=== PATIENT | female | born 1965 | race Caucasian/White ===

== ENCOUNTER 2017-09-11 17:18 | Emergency (ER) | payer SELFPAY ==
[~2017-09-11 17:18] MED LIST: ACET500; ALBU90OI61 INH; ASPI81CH; ASPI81EC PO; CEPH500 PO; CITA20; CLIN300 PO; FERR325 PO; FLUT110OIA INH; HYDACE5 PO; INSULANPEN SQ; LISHYD1012; LISHYD2012; LISHYD2025 PO; LISI20 PO; METF500; METF500 PO; NITR.4SL; Norco 5-325 Ta1 EACH PO; PENVK500 PO; PRAV20; PROM25 PO; ROSU10TA PO; RXSULTRIDS PO; SIMV10 PO; SULTRIDS PO; Simvastatin20 MG PO; TELM20 PO; TELM80 PO; TRAM50 PO
== END 2017-09-11 18:06 | disposition left against medical advice (07) ==
LOC: ER 17:18
DX: Z53.21 Procedure and treatment not carried out due to patient leaving prior to being seen by health care provider (principal)

== ENCOUNTER 2019-01-10 09:36 | Emergency (ER) | payer OTHER ==
[~2019-01-10] VITALS: Ht 154.9 cm; Wt 61.2 kg
[~2019-01-10 09:36] MED LIST changes: +Flomax0.4 MG PO; +IBUP600 PO; +METF500C PO
[2019-01-10] MEDS ORDERED: HYDHCL25 (09:55)
[2019-01-10] MEDS ORDERED: ONDA4 PO (09:55)
[2019-01-10 10:24] LABS: Source, Urine Clean Catch
[2019-01-10 10:30] LABS: BASOPHILS ABSOLUTE AUTO 0.05 K/mm3 (0.00-0.23); BASOPHILS PERCENT AUTO 1 % (0-2); EOSINOPHILS ABSOLUTE AUTO 0.08 K/mm3 (0.00-0.68); EOSINOPHILS PERCENT AUTO 1 % (0-6); Hematocrit 44.7 % (33.0-51.0); Hemoglobin 15.6 g/dL (11.5-16.0); IMMATURE GRAN ABSOLUTE AUTO 0.01 K/mm3 (0.00-0.10); IMMATURE GRAN PERCENT AUTO 0 % (0-1); LYMPHOCYTES ABSOLUTE AUTO 3.42 K/mm3 (0.84-5.20); LYMPHOCYTES PERCENT AUTO 33 % (21-46); MONOCYTES ABSOLUTE AUTO 0.62 K/mm3 (0.16-1.47); MONOCYTES PERCENT AUTO 6 % (4-13); Mean Corpuscular HGB 28.7 pg (26.0-34.0); Mean Corpuscular HGB Conc 34.9 g/dL (31.5-36.5); Mean Corpuscular Volume 82 fL (80-100); NEUTROPHILS PERCENT AUTO 59 % (41-73); Platelet Count 331 K/mm3 (150-400); RDW Coefficient Variation 12.2 % (11.7-14.2); RDW Standard Deviation 36.5 fL (35.1-46.3); Red Blood Cell Count 5.44 M/mm3 (3.80-5.20); White Blood Cell Count 10.28 K/mm3 (4.00-11.30)
[2019-01-10 10:31] LABS: Bilirubin, Urine Neg (Neg); Blood, Urine Neg (Neg); Glucose Qualitative, Urine 4+ (Neg); Ketones, Urine Neg (Neg); Leukocyte Esterase, Urine 1+ (Neg); Nitrite, Urine Neg (Neg); Protein, Urine 1+ (Neg); Specific Gravity, Urine 1.005 (1.003-1.022); Urobilinogen, Urine NORM (Normal)
[2019-01-10 10:39] LABS: Appearance, Urine Clear (Clear); Color, Urine Yellow (P-Yellow)
[2019-01-10 10:42] LABS: Bacteria Rare /hpf; Red Blood Cells, Urine 0-2 /hpf (0-2); Squamous Epithelial Cells Few /hpf (Few)
[2019-01-10 10:48] LABS: Alanine Aminotransfer (ALT/SGP 19 U/L (12-78); Albumin, Blood 3.8 g/dL (3.4-5.0); Albumin/Globulin Ratio 0.9 (0.8-1.8); Alk Phos 120 U/L (50-136); Anion Gap 9 mmol/L (6-16); Aspartate Aminotrans (AST/SGOT 13 U/L (12-37); Bilirubin, Total 0.9 mg/dL (0.1-1.0); Blood Urea Nitrogen 20 mg/dL (8-24); Bun/Creatinine Ratio 33.4 (12.0-20.0); CO2, Blood 31 mmol/L (21-32); Calcium, Blood 9.6 mg/dL (8.5-10.1); Chloride, Blood 92 mmol/L (98-108); Globulin, Blood 4.1 g/dL (2.2-4.0); Glomerular Filtration Rate >60 (60-); Glucose, Blood 440 mg/dL (70-99); Sodium, Blood 132 mmol/L (136-145); Total Protein, Blood 7.9 g/dL (6.4-8.2)
== END 2019-01-10 14:31 | disposition home or self-care (01) ==
LOC: ER 09:36
PROVIDERS: Physician Assistant
DX: E11.65 Type 2 diabetes mellitus with hyperglycemia (principal); I10 Essential (primary) hypertension; Z79.899 Other long term (current) drug therapy; Z79.82 Long term (current) use of aspirin; Z79.4 Long term (current) use of insulin
CPT/HCPCS: 36415; 71046; 80053; 81001; 82010; 82800; 82947; 84484; 85025; 87086; 93005; 93010; 96360; 99285-25; J1815; J7120

== ENCOUNTER 2019-05-07 15:59 | Inpatient (IN) | payer OTHER ==
[~2019-05-07] VITALS: Ht 154.9 cm; Wt 55.2 kg
[~2019-05-07 15:59] MED LIST changes: +Aspirin EC81 MG PO; +HYDHCL25; +INSULANPEN SC; -INSULANPEN SQ; +ONDA4 PO
[2019-05-07 16:55] LABS: BASOPHILS ABSOLUTE AUTO 0.03 K/mm3 (0.00-0.23); BASOPHILS PERCENT AUTO 0 % (0-2); EOSINOPHILS ABSOLUTE AUTO 0.13 K/mm3 (0.00-0.68); EOSINOPHILS PERCENT AUTO 1 % (0-6); Hematocrit 46.3 % (33.0-51.0); Hemoglobin 15.5 g/dL (11.5-16.0); IMMATURE GRAN ABSOLUTE AUTO 0.01 K/mm3 (0.00-0.10); IMMATURE GRAN PERCENT AUTO 0 % (0-1); LYMPHOCYTES ABSOLUTE AUTO 2.84 K/mm3 (0.84-5.20); LYMPHOCYTES PERCENT AUTO 28 % (21-46); MONOCYTES ABSOLUTE AUTO 0.53 K/mm3 (0.16-1.47); MONOCYTES PERCENT AUTO 5 % (4-13); Mean Corpuscular HGB 28.9 pg (26.0-34.0); Mean Corpuscular HGB Conc 33.5 g/dL (31.5-36.5); Mean Corpuscular Volume 86 fL (80-100); Mean Platelet Volume 9.6 fL (9.1-12.4); NEUTROPHILS ABSOLUTE AUTO 6.49 K/mm3 (1.96-9.15); NEUTROPHILS PERCENT AUTO 65 % (41-73); Platelet Count 299 K/mm3 (150-400); RDW Coefficient Variation 12.2 % (11.7-14.2); RDW Standard Deviation 38.7 fL (35.1-46.3); Red Blood Cell Count 5.37 M/mm3 (3.80-5.20); White Blood Cell Count 10.03 K/mm3 (4.00-11.30)
[2019-05-07 17:18] LABS: Alanine Aminotransfer (ALT/SGP 21 U/L (12-78); Albumin, Blood 3.5 g/dL (3.4-5.0); Albumin/Globulin Ratio 0.9 (0.8-1.8); Alk Phos 75 U/L (50-136); Anion Gap 6 mmol/L (6-16); Aspartate Aminotrans (AST/SGOT 17 U/L (12-37); Bilirubin, Total 0.6 mg/dL (0.1-1.0); Blood Urea Nitrogen 20 mg/dL (8-24); Bun/Creatinine Ratio 40.6 (12.0-20.0); CO2, Blood 26 mmol/L (21-32); Calcium, Blood 9.6 mg/dL (8.5-10.1); Chloride, Blood 102 mmol/L (98-108); Creatinine, Blood 0.49 mg/dL (0.40-1.00); Glomerular Filtration Rate >60 (60-); Glucose, Blood 335 mg/dL (70-99); Potassium, Blood 3.7 mmol/L (3.5-5.5); Sodium, Blood 134 mmol/L (136-145); Total Protein, Blood 7.5 g/dL (6.4-8.2)
[2019-05-07 19:36] LABS: Source, Urine Clean Catch
[2019-05-07 19:50] LABS: Bilirubin, Urine Neg (Neg); Blood, Urine Neg (Neg); Glucose Qualitative, Urine 4+ (Neg); Ketones, Urine 2+ (Neg); Leukocyte Esterase, Urine Neg (Neg); Nitrite, Urine Neg (Neg); Protein, Urine 1+ (Neg); Urobilinogen, Urine NORM (Normal)
[2019-05-07 19:51] LABS: Appearance, Urine Clear (Clear); Color, Urine Yellow (P-Yellow)
[2019-05-07] MEDS ORDERED: Humalog100 UNIT/1 SC (21:10)
--- NOTE | 2019-05-08 01:40 | NUR ---
PT ARRIVES TO ICU 2 VIA GURNEY FROM ER MEDICAL STATUS PATIENT. DENIES N/V, DENIES CP/PRESSURE, DENIES SOB/DYSPNEA. SPEAKING IN FULL SENTANCES, PT STATES THAT SHE IS NO LONGER SLURRING HER WORDS "LIKE I HAD A MOUTHFUL OF MARSHMALLOWS" SMILE IS NOTED WITH SLIGHT LEFT DROOP, LEFT ARM DRIFTS DOWNWARD WITH EYES CLOSED, HOT REPAIRMAN IS MARKEDLY WEAKER ON LEFT THAN RIGHT AND LEFT FOOT STRENGTH IS WEAK COMPARED TO RIGHT.
[2019-05-08 03:41] LABS: Hematocrit 40.4 % (33.0-51.0); Hemoglobin 13.9 g/dL (11.5-16.0); Mean Corpuscular HGB 29.1 pg (26.0-34.0); Mean Corpuscular HGB Conc 34.4 g/dL (31.5-36.5); Mean Corpuscular Volume 85 fL (80-100); Mean Platelet Volume 9.9 fL (9.1-12.4); Platelet Count 278 K/mm3 (150-400); RDW Coefficient Variation 12.1 % (11.7-14.2); RDW Standard Deviation 37.2 fL (35.1-46.3); Red Blood Cell Count 4.77 M/mm3 (3.80-5.20); White Blood Cell Count 8.38 K/mm3 (4.00-11.30)
[2019-05-08 03:59] LABS: International Normalized Ratio 0.99; Prothrombin Time Results 10.5 Sec (9.7-11.5)
[2019-05-08 04:01] LABS: Magnesium, Blood 1.6 mg/dL (1.6-2.4); Very Low Density Lipoprot Chol 34 mg/dL (6-32)
[2019-05-08 04:02] LABS: Anion Gap 8 mmol/L (6-16); Blood Urea Nitrogen 21 mg/dL (8-24); Bun/Creatinine Ratio 35.3 (12.0-20.0); CHOL/HDL RATIO 4.7; CO2, Blood 26 mmol/L (21-32); Calcium, Blood 8.7 mg/dL (8.5-10.1); Chloride, Blood 105 mmol/L (98-108); Cholesterol 217 mg/dL (50-200); Glomerular Filtration Rate >60 (60-); Glucose, Blood 274 mg/dL (70-99); HDL Cholesterol 46 mg/dL (>39); Low Density Lipoprotein Chol 137 mg/dL (0-110); Potassium, Blood 3.5 mmol/L (3.5-5.5); Sodium, Blood 139 mmol/L (136-145); Triglycerides 172 mg/dL (30-160)
--- NOTE | 2019-05-08 06:16 | NUR ---
PT NEW ADMIT THIS SHIFT FOR DX OF CVA, SHE HAS INQUIRED REGARDING DIABETES AND WHETHER THIS WILL INCREASE HER RISK OF STROKE, DISCUSSED EFFECTS OF POORLY CONTROLLED DIABETES AND INCREASED RISK OF AR AND CVA, CONTINUE TO REINFORCE. PT HAS STATED THAT SHE HAS NOT BEEN TAKING HER HUMALOG AND THAT SHE DOESN'T REMEMBER HOW LONG IT HAS BEEN BUT THAT SHE STOPPED TAKING IT BECAUSE SHE LOST HER INSULIN PEN TWICE. SHE HAS STATED THAT SHE HAS NOT BEEN TAKING VERY GOOD CARE OF HER CHRONIC MEDICAL CONDITIONS AND THAT SHE HOPES TO IMPROVE IN THE FUTURE. SHE HAS BEEN HYPERTENSIVE SINCE ARRIVAL HOWEVER PRESSURES ARE IMPROVED TO 170S SYSTOLIC THIS AM. LEFT SIDE REMAINS WEAK.
--- NOTE | 2019-05-08 07:00 | NUR ---
REPORT FROM JR ROMERO. ASSUMED PT CARE.
--- NOTE | 2019-05-08 07:44 | NUR ---
VSS. ASSESSMENT CHARTED. ASSISTED PT TO COMMODE. CLEAN PULLUP PROVIDED. ONE PT WAS WEARING WAS SATURATED. NEW PAD PLACED TO BED. PT DENIES PAIN. STATES SHE HAD AN OK NIGHT BUT THAT SHE IS VERY TIRED. CBG 236. WILL MEDICATE PER EMAR. CALL LIGHT IN REACH.
--- NOTE | 2019-05-08 08:20 | NUR ---
IMAGING STAFF AT BEDSIDE.
--- NOTE | 2019-05-08 09:01 | NUR ---
PT MEDICATED PER EMAR WITH SCHED MEDS. PT KIRTI ASPIRIN WELL. INSULIN GIVEN. FAMILY AT BEDSIDE. MRI SCREENING FORM COMPLETE.
--- NOTE | 2019-05-08 10:11 | NUR ---
PT TO IMAGING FOR MRI.
--- NOTE | 2019-05-08 10:29 | NUR ---
PT RETURNED FROM IMAGING.
--- NOTE | 2019-05-08 11:21 | NUR ---
CONSTRUCTION CODE ADMINISTRATOR TO ROOM. PT DENIES NEEDS.
--- NOTE | 2019-05-08 11:58 | NUR ---
DR FLORES TO ROOM FOR EVAL
--- NOTE | 2019-05-08 12:08 | NUR ---
PT MEDICATED WITH INSULIN PER EMAR. ASSISTED TO TOILET.
--- NOTE | 2019-05-08 12:13 | NUR ---
echocardiogram completed
--- NOTE | 2019-05-08 12:36 | NUR ---
DIETARY TO ROOM FOR CONSULT. LUNCH PROVIDED. TELE REMOVED PER ORDERS.
--- NOTE | 2019-05-08 13:14 | NUR ---
PT MEDICATED WITH SCHED LIPITOR. JOSEPH. PT WITH MULT FAMILY IN AND OUT. FREDDYY CLEARED.
--- NOTE | 2019-05-08 15:09 | NUR ---
ICU NURSE PRIVATE DUTY TO ROOM TO ASSIST PT TO TOILET AND BACK TO BED.
--- NOTE | 2019-05-08 17:16 | NUR ---
CBG 297. DINNER TRAY PROVIDED.
--- NOTE | 2019-05-08 18:53 | NUR ---
FAMILY AT BEDSIDE, VS CHARTED.
[2019-05-09 04:07] LABS: Anion Gap 5 mmol/L (6-16); Blood Urea Nitrogen 17 mg/dL (8-24); Bun/Creatinine Ratio 35.7 (12.0-20.0); CO2, Blood 26 mmol/L (21-32); Chloride, Blood 106 mmol/L (98-108); Creatinine, Blood 0.48 mg/dL (0.40-1.00); Glomerular Filtration Rate >60 (60-); Glucose, Blood 226 mg/dL (70-99); Potassium, Blood 3.4 mmol/L (3.5-5.5); Sodium, Blood 137 mmol/L (136-145)
--- NOTE | 2019-05-09 06:14 | NUR ---
PT RESTS QUIETLY THROUGHOUT SHIFT, UP TO TOILET WITH 1 PERSON STANDBY ASSIST FOR VOIDS, TOLERATES WELL, GAIT IS NOTED UNSTEADY AND PT EDUCATION HAS BEEN PROVIDED REGARDING FALL PRECAUTIONS. CONTINUES HYPERTENSIVE AND VASOTEC ADMINISTERED X 1 THIS AM. OTHERWISE NO ACUTE CHANGES THIS SHIFT.
--- NOTE | 2019-05-09 07:45 | NUR ---
VSS. PT DENIES PAIN. STATES SHES HUNGRY. PT STATES SHE SLEPT WELL LAST NIGHT. DENIES QUESTIONS AT THIS TIME. ASSESSMENT CHARTED. ASSISTED IN SITTING UP IN BED FOR BREAKFAST. CBG 174. BREAKFAST TRAY PROVIDED.
--- NOTE | 2019-05-09 08:35 | NUR ---
PT MEDICATED WITH SCHEDULED MEDS PER EMAR. PT SPOUSE AT BEDSIDE.
--- NOTE | 2019-05-09 08:54 | NUR ---
PT TO SHOWER, BED LINENS CHANGED.
--- NOTE | 2019-05-09 10:12 | NUR ---
PT SLEEPING, RESP EVEN AND NON LABORED. LIGHTS DIMMED. DOOR CLOSED.
--- NOTE | 2019-05-09 11:57 | NUR ---
LUNCH TRAY PROVIDED.
--- NOTE | 2019-05-09 13:25 | NUR ---
PT ASSISTED TO AND FROM TOILET. VOIDED, PT REPORTS MEDIUM BM.
--- NOTE | 2019-05-09 15:25 | NUR ---
ASSISTED PT TO AND FROM TOILET. NEW PULLUP AND NEW GOWN PROVIDED.
--- NOTE | 2019-05-09 16:12 | NUR ---
PT AMBULATED APPROX 100 FT WITH USE OF WALKER. TOLERATED ACTIVITY WELL, NO JUDI OR EPISODES OF WEAKNESS/DIZZINESS. PT BACK TO ROOM, SITTING UP IN CHAIR. VISITORS TO ROOM.
--- NOTE | 2019-05-09 16:36 | NUR ---
PT UP AMB REMY IN ICU WITH WALKER.
--- NOTE | 2019-05-09 17:25 | NUR ---
CBG CHECKED ON FINGER TO LEFT HAND "HI READING" CBG CHECKED ON FINGER TO RIGHT HAND, 453. LAB TO DRAW CONFIRMATORY. PT AWARE. EDUCATION PROVIDED TO PT RE HER EATING HABITS AND WAYS TO CONTROL BLOOD SUGAR.
--- NOTE | 2019-05-09 17:34 | NUR ---
LAB TO ROOM FOR REFLEX DRAW DUE TO HIGH CBG.
[2019-05-09 18:21] LABS: Glucose, Blood 490 mg/dL (70-99)
--- NOTE | 2019-05-09 18:52 | NUR ---
PT CHATTING WITH FAMILY. NO NEEDS EXPRESSED.
[2019-05-10 04:26] LABS: Anion Gap 7 mmol/L (6-16); Blood Urea Nitrogen 18 mg/dL (8-24); Bun/Creatinine Ratio 42.6 (12.0-20.0); CO2, Blood 26 mmol/L (21-32); Calcium, Blood 9.2 mg/dL (8.5-10.1); Chloride, Blood 103 mmol/L (98-108); Creatinine, Blood 0.42 mg/dL (0.40-1.00); Glomerular Filtration Rate >60 (60-); Glucose, Blood 309 mg/dL (70-99); Sodium, Blood 136 mmol/L (136-145)
--- NOTE | 2019-05-10 06:07 | NUR ---
PT AWAKE UNTIL AFTER 0100 THIS AM, STATES THAT SHE HAS ANXIETY AND HAS BEEN WORRYING ABOUT HER HEALTH AND MAKING SURE THAT SHE STARTS MANAGING HER DIABETES BETTER. LEFT NARCOTICS AGENT AND LEG STRENGHT IMPROVED SLIGHTLY FROM ADMIT HOWEVER REMAIN MARKEDLY WEAKER THAN RIGHT SIDE. BLOOD PRESSURES ARE NOTED IMPROVED FOLLOWING MEDICATION CHANGES YESTERDAY. NO ACUTE CHANGES THIS SHIFT.
--- NOTE | 2019-05-10 07:23 | NUR ---
ASSUMED CARE REPORT FROM HEATHER MARQUEZ. PATIENT SLEEPING
--- NOTE | 2019-05-10 10:37 | NUR ---
MD VISIT DR. FLORES WAS IN AROUND 0800
--- NOTE | 2019-05-10 16:38 | NUR ---
MEDICAL STATUS PATIENT TAKEN OUT IN WC TO SEE HER DOG
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
--- NOTE | 2019-05-10 18:24 | NUR ---
PATIENT C/O PAIN AND SWELLING IN LEFT HAND AFTER FALLING PRIOR TO HOSPITALIZATION. ICE PACK PROVIDED. DR. FLORES CONSULTED. X-RAY ORDERED AND COMPLETED.
--- NOTE | 2019-05-10 20:49 | NUR ---
Transfer report on 54 year old Female being admitted after CVA with lt sided deficit. Poorly controlled diabetes blood glucoses in high 200 dinner bg 319. Got 40 units lantus insulin. Await transfer. Fell at home will have fall precautions. Await transfer. Report from Cathi ROMERO in ICU
--- NOTE | 2019-05-10 21:23 | NUR ---
PT arrived at 2109 from ICU. Up to bathroom with assist. Void plus incont and large formed BM. Alert talkative. lt ue weakness. BG elevated, BP elevated diastolic 111
--- NOTE | 2019-05-11 06:13 | NUR ---
54 year old Female transferred from ICU 2109 last night. She has denied acute distress but lt hand pain has continued to be rated at 3/10 despite elevation. Intermittnat lt ue tingling after CVA. Pt has been noncompliant with caring for hypertension or diabetes. She says she is motivated to change. Her BP was less elevated this AM 150's /90's. She has 40 units of lantus in [facility] prior to transfer. BG at HS 324. Ate sugarfree jello as HS snack when RN couldnt find sugar free vanilla pudding. Up with 1 assist to bathroom, falls at home, rt ankle fx with fall in December 2018. Unsteady gait. Probable dc home today with home health services and has assist at home from Spouse. Has 5 adult Children .
[2019-05-11] MEDS ORDERED: ATOR40TA PO (11:56)
[2019-05-11] MEDS ORDERED: HYDCHL12.5 PO (11:57)
[2019-05-11] MEDS ORDERED: Prinivil10 MG PO (11:58)
[2019-05-11] MEDS ORDERED: METO50ER PO (11:58)
--- NOTE | 2019-05-11 12:23 | NUR ---
PATIENT VERBALIZED DISCHARGE INSTRUCTIONS AND GIVEN A PRINTED COPY FOR REFERENCE. HARD SCRIPT GIVEN FOR INSULIN NEEDLES AND SYRINGES WELL A GLUCOMETER. ALL QUESTIONS ANSWERED. PRESCRIPTIONS SENT TO HOMETOWN DRUGS.
--- NOTE | 2019-05-11 13:55 | NUR ---
SHIFT SUMMARY PT SLEEPING, RESTING QUIETLY THIS AM DURING SHIFT REPORT. WOKE EASILY, BUT REQUESTED TO GO BACK TO SLEEP AFTER BS REPORT. P/T IN TO WORK WITH PT AFTER BREAKFAST. PT ABLE TO TX AND AMBULATE WITH FWW AND SBA. PT THEN ASSISTED TO CHAIR AT BS WITH CHAIR ALARM. PT UP OUT OF CHAIR WITHOUT CALLING, SETTING ALARM OFF. PT ABLE TO AMBULATE ON HER OWN, BUT IS UNSTEADY BEYOND A FEW STEPS. ASSISTED PT BACK TO BED; BED ALARM ON. INSULIN EDU GIVEN AND PT ADMINISTERED LUNCH INSULIN PER SS. DR IRVIN IN TO SEE PT AND EDUCATE HER REGARDING CBG MONITORING AT HOME AND HOW TO TAKE HER INSULIN. PT TO FOLLOW INSTRUCTIONS GIVEN. PT REPEATED DR DUBON INSTRUCTIONS A COUPLE OF TIMES. PT ENCOURAGE TO ATTEND OUTPT DIABETIC EDU CLASSES. PT HAS A HX OF NONCOMPLIANCE. SCRIPT GIVEN FOR INSULIN METER AND NEEDLES NEEDED TO MONITOR AND ADMINISTER. PT C/O PAIN TO LW THIS AM. MEDICATED WITH TYLENOL AND ICE BAG WRAPPED AROUND WRIST. PT REPORTED IT HELPFUL. UNABLE TO ASSESS STRENGTH IN L ARM D/T SEVERE PAIN. PER REPORT, PT HAS SEVERE DEGENERATIVE JOINT DISEASE WITH ARTHRITIS. PT'S TO RM THIS AM AND AGAIN TO TAKE PT HOME. PT REQUESTING JIM IN TO SEE HER PRIOR TO LEAVING. JIM PAGED AND TO RM. PT ASSISTED OUT TO CAR BY ESCORT AND . PT GRATEFUL FOR CARE GIVEN.
--- NOTE | 2019-05-11 15:29 | NUR ---
Spiritual Care folow-up: Aaliyah was in the process of discharge. She states she's "a little scared" of going home b/c she is still so weak. Her SO was present and assured me that Jacqueline would be carefully watched over and cared-for. I prayed for Aaliyah for strength and healing at her request. We have a good rapport. She was discharged home while I was present.
== END 2019-05-11 13:08 | disposition home or self-care (01) | DRG 66 ==
LOC: ER 15:59 → ERHOLD 22:08 → ICUE 05-08 01:28 → MEDS 05-10 21:09
PROVIDERS: Internal Medicine; Nurse Practitioner Acute Care; Physician Assistant; ADMIT Internal Medicine
DX: I63.9 Cerebral infarction, unspecified (principal); I10 Essential (primary) hypertension; E11.65 Type 2 diabetes mellitus with hyperglycemia; E78.5 Hyperlipidemia, unspecified; E87.6 Hypokalemia; R82.4 Acetonuria; Z88.5 Allergy status to narcotic agent; Z79.84 Long term (current) use of oral hypoglycemic drugs; Z79.82 Long term (current) use of aspirin; Z79.4 Long term (current) use of insulin; Z79.899 Other long term (current) drug therapy
CPT/HCPCS: 36415; 70450; 70551; 73130; 80048; 80053; 80061; 82947; 83036; 83735; 85025; 85027; 85610; 92610; 93005; 93010; 93306; 93880; 96360; 96361; 96372-59; 97110; 97162; 97166; 97530; 99285-25; A9270; J1650; J7030

== ENCOUNTER 2019-06-30 10:44 | Emergency (ER) | payer OTHER ==
[~2019-06-30] VITALS: Ht 154.9 cm; Wt 60.3 kg
[~2019-06-30 10:44] MED LIST changes: +ASPI325 PO; +ATOR40TA PO; +HYDCHL12.5 PO; +Humalog100 UNIT/1 SC; +METO50ER PO
[2019-06-30 12:10] LABS: Source, Urine Clean Catch
[2019-06-30 12:25] LABS: Bilirubin, Urine Neg (Neg); Blood, Urine 2+ (Neg); Glucose Qualitative, Urine 1+ (Neg); Ketones, Urine Neg (Neg); Leukocyte Esterase, Urine 3+ (Neg); Nitrite, Urine Neg (Neg); Protein, Urine Neg (Neg); Urobilinogen, Urine 1+ (Normal)
[2019-06-30 12:36] LABS: BASOPHILS ABSOLUTE AUTO 0.04 K/mm3 (0.00-0.23); BASOPHILS PERCENT AUTO 0 % (0-2); EOSINOPHILS ABSOLUTE AUTO 0.18 K/mm3 (0.00-0.68); EOSINOPHILS PERCENT AUTO 2 % (0-6); Hematocrit 39.6 % (33.0-51.0); Hemoglobin 13.8 g/dL (11.5-16.0); IMMATURE GRAN ABSOLUTE AUTO 0.02 K/mm3 (0.00-0.10); IMMATURE GRAN PERCENT AUTO 0 % (0-1); LYMPHOCYTES ABSOLUTE AUTO 3.81 K/mm3 (0.84-5.20); LYMPHOCYTES PERCENT AUTO 42 % (21-46); MONOCYTES ABSOLUTE AUTO 0.58 K/mm3 (0.16-1.47); MONOCYTES PERCENT AUTO 7 % (4-13); Mean Corpuscular HGB 29.4 pg (26.0-34.0); Mean Corpuscular HGB Conc 34.8 g/dL (31.5-36.5); Mean Corpuscular Volume 84 fL (80-100); Mean Platelet Volume 9.1 fL (9.1-12.4); NEUTROPHILS ABSOLUTE AUTO 4.36 K/mm3 (1.96-9.15); NEUTROPHILS PERCENT AUTO 49 % (41-73); Platelet Count 351 K/mm3 (150-400); RDW Coefficient Variation 13.2 % (11.7-14.2); RDW Standard Deviation 40.1 fL (35.1-46.3); Red Blood Cell Count 4.69 M/mm3 (3.80-5.20); White Blood Cell Count 8.99 K/mm3 (4.00-11.30)
[2019-06-30 12:43] LABS: Appearance, Urine Clear (Clear); Color, Urine Yellow (P-Yellow)
[2019-06-30 12:45] LABS: Bacteria Few /hpf; Squamous Epithelial Cells Few /hpf (Few)
[2019-06-30] MEDS ORDERED: TOPROL XL50 MG PO (12:54)
[2019-06-30 13:02] LABS: Alanine Aminotransfer (ALT/SGP 23 U/L (12-78); Albumin, Blood 3.9 g/dL (3.4-5.0); Albumin/Globulin Ratio 0.9 (0.8-1.8); Alk Phos 86 U/L (50-136); Anion Gap 5 mmol/L (6-16); Aspartate Aminotrans (AST/SGOT 12 U/L (12-37); Bilirubin, Total 0.9 mg/dL (0.1-1.0); Blood Urea Nitrogen 21 mg/dL (8-24); Bun/Creatinine Ratio 34.7 (12.0-20.0); CO2, Blood 31 mmol/L (21-32); Calcium, Blood 9.4 mg/dL (8.5-10.1); Chloride, Blood 102 mmol/L (98-108); Creatinine, Blood 0.61 mg/dL (0.40-1.00); Globulin, Blood 4.3 g/dL (2.2-4.0); Glomerular Filtration Rate >60 (60-); Glucose, Blood 157 mg/dL (70-99); Potassium, Blood 3.5 mmol/L (3.5-5.5); Sodium, Blood 138 mmol/L (136-145); Total Protein, Blood 8.2 g/dL (6.4-8.2); Troponin I <0.015 ng/mL (0.000-0.040)
[2019-06-30] MEDS ORDERED: CEPH500 PO (13:33)
== END 2019-06-30 13:58 | disposition home or self-care (01) ==
LOC: ER 10:44
PROVIDERS: Physician Assistant
DX: N39.0 Urinary tract infection, site not specified (principal); E11.9 Type 2 diabetes mellitus without complications; I10 Essential (primary) hypertension; Z88.5 Allergy status to narcotic agent; Z79.899 Other long term (current) drug therapy; Z79.82 Long term (current) use of aspirin; Z79.4 Long term (current) use of insulin; Z86.73 Personal history of transient ischemic attack (TIA), and cerebral infarction without residual deficits
CPT/HCPCS: 36415; 70450; 80053; 81001; 84484; 85025; 87086; 93005; 93010; 99284-25; A9270-GY

== ENCOUNTER → 2019-07-05 | Outpatient (CLI) | payer OTHER ==
[~2019-07-05] MED LIST changes: +TOPROL XL50 MG PO
[2019-07-07 13:07] LABS: HPV 16 Negative (Negative); HPV 18 Negative (Negative); HPV OTHER HR TYPES Negative (Negative)
== END | disposition home or self-care (01) ==
LOC: LAB 17:30 → LAB SHORT 17:30
PROVIDERS: Nurse Practitioner Women's Health
DX: Z12.4 Encounter for screening for malignant neoplasm of cervix (principal)
CPT/HCPCS: 87624; G0123

== ENCOUNTER 2019-10-01 19:56 | Emergency (ER) | payer OTHER ==
[~2019-10-01] VITALS: Ht 154.9 cm; Wt 55.3 kg
[2019-10-01 20:48] LABS: BASOPHILS ABSOLUTE AUTO 0.04 K/mm3 (0.00-0.23); BASOPHILS PERCENT AUTO 1 % (0-2); EOSINOPHILS ABSOLUTE AUTO 0.24 K/mm3 (0.00-0.68); EOSINOPHILS PERCENT AUTO 3 % (0-6); Hematocrit 42.9 % (33.0-51.0); Hemoglobin 14.9 g/dL (11.5-16.0); IMMATURE GRAN ABSOLUTE AUTO 0.01 K/mm3 (0.00-0.10); IMMATURE GRAN PERCENT AUTO 0 % (0-1); LYMPHOCYTES ABSOLUTE AUTO 3.22 K/mm3 (0.84-5.20); LYMPHOCYTES PERCENT AUTO 44 % (21-46); MONOCYTES ABSOLUTE AUTO 0.42 K/mm3 (0.16-1.47); MONOCYTES PERCENT AUTO 6 % (4-13); Mean Corpuscular HGB 29.3 pg (26.0-34.0); Mean Corpuscular HGB Conc 34.7 g/dL (31.5-36.5); Mean Corpuscular Volume 84 fL (80-100); Mean Platelet Volume 9.6 fL (9.1-12.4); NEUTROPHILS ABSOLUTE AUTO 3.45 K/mm3 (1.96-9.15); NEUTROPHILS PERCENT AUTO 47 % (41-73); Platelet Count 292 K/mm3 (150-400); RDW Coefficient Variation 12.8 % (11.7-14.2); RDW Standard Deviation 39.2 fL (35.1-46.3); Red Blood Cell Count 5.09 M/mm3 (3.80-5.20); White Blood Cell Count 7.38 K/mm3 (4.00-11.30)
[2019-10-01 21:04] LABS: Alanine Aminotransfer (ALT/SGP 19 U/L (12-78); Anion Gap 10 mmol/L (6-16); Aspartate Aminotrans (AST/SGOT 19 U/L (12-37); Blood Urea Nitrogen 14 mg/dL (8-24); Bun/Creatinine Ratio 24.3 (12.0-20.0); CO2, Blood 27 mmol/L (21-32); Calcium, Blood 9.6 mg/dL (8.5-10.1); Chloride, Blood 100 mmol/L (98-108); Creatinine, Blood 0.58 mg/dL (0.40-1.00); Glomerular Filtration Rate >60 (60-); Glucose, Blood 237 mg/dL (70-99); Potassium, Blood 3.7 mmol/L (3.5-5.5); Sodium, Blood 137 mmol/L (136-145)
[2019-10-01 21:08] LABS: Alk Phos 62 U/L (50-136); Bilirubin, Total 0.8 mg/dL (0.1-1.0); Globulin, Blood 4.2 g/dL (2.2-4.0); Total Protein, Blood 8.2 g/dL (6.4-8.2); Troponin I <0.015 ng/mL (0.000-0.040)
[2019-10-01 21:17] LABS: Source, Urine Clean Catch
[2019-10-01 21:19] LABS: Bilirubin, Urine Neg (Neg); Blood, Urine Neg (Neg); Glucose Qualitative, Urine 4+ (Neg); Ketones, Urine Neg (Neg); Leukocyte Esterase, Urine 1+ (Neg); Nitrite, Urine Neg (Neg); Protein, Urine 2+ (Neg); Urobilinogen, Urine NORM (Normal)
[2019-10-01 21:28] LABS: Appearance, Urine Clear (Clear); Color, Urine Yellow (P-Yellow)
[2019-10-01 21:29] LABS: Bacteria Many /hpf; Mucus Light (0-Heavy); Red Blood Cells, Urine 0-2 /hpf (0-2); Squamous Epithelial Cells Mod /hpf (Few)
[2019-10-01] MEDS ORDERED: ONDA4ODT SL (22:50)
== END 2019-10-01 23:09 | disposition home or self-care (01) ==
LOC: ER 19:56
PROVIDERS: Physician Assistant
DX: F32.9 Major depressive disorder, single episode, unspecified (principal); R63.4 Abnormal weight loss; Z86.73 Personal history of transient ischemic attack (TIA), and cerebral infarction without residual deficits; E11.9 Type 2 diabetes mellitus without complications; I10 Essential (primary) hypertension; Z79.4 Long term (current) use of insulin; Z79.899 Other long term (current) drug therapy; Z79.82 Long term (current) use of aspirin
CPT/HCPCS: 36415; 70450; 71046; 80053; 81001; 83690; 84484; 85025; 87086; 93005; 93010; 99285-25; A9270-GY

== ENCOUNTER 2020-10-09 19:01 | Emergency (ER) | payer OTHER ==
[~2020-10-09 19:01] MED LIST changes: -ASPI325 PO; +ASPI325EC PO; +ATOR20; +BASAGLAR K100 UNIT/4 SC; +ONDA4ODT SL
== END 2020-10-09 19:37 | disposition left against medical advice (07) ==
LOC: ER 19:01
DX: Z53.21 Procedure and treatment not carried out due to patient leaving prior to being seen by health care provider (principal)

== ENCOUNTER 2020-12-15 12:35 | Inpatient (IN) | payer OTHER ==
[~2020-12-15] VITALS: Ht 157.5 cm; Wt 61.2 kg
[2020-12-15 13:10] LABS: BASOPHILS ABSOLUTE AUTO 0.07 K/mm3 (0.00-0.23); BASOPHILS PERCENT AUTO 1 % (0-2); EOSINOPHILS ABSOLUTE AUTO 0.15 K/mm3 (0.00-0.68); EOSINOPHILS PERCENT AUTO 1 % (0-6); Hematocrit 45.6 % (33.0-51.0); Hemoglobin 15.6 g/dL (11.5-16.0); IMMATURE GRAN ABSOLUTE AUTO 0.03 K/mm3 (0.00-0.10); IMMATURE GRAN PERCENT AUTO 0 % (0-1); LYMPHOCYTES ABSOLUTE AUTO 2.91 K/mm3 (0.84-5.20); LYMPHOCYTES PERCENT AUTO 26 % (21-46); MONOCYTES ABSOLUTE AUTO 0.65 K/mm3 (0.16-1.47); MONOCYTES PERCENT AUTO 6 % (4-13); Mean Corpuscular HGB 28.5 pg (26.0-34.0); Mean Corpuscular HGB Conc 34.2 g/dL (31.5-36.5); Mean Corpuscular Volume 83 fL (80-100); NEUTROPHILS ABSOLUTE AUTO 7.55 K/mm3 (1.96-9.15); NEUTROPHILS PERCENT AUTO 67 % (41-73); Platelet Count 304 K/mm3 (150-400); RDW Coefficient Variation 12.7 % (11.7-14.2); RDW Standard Deviation 38.6 fL (35.1-46.3); Red Blood Cell Count 5.47 M/mm3 (3.80-5.20); White Blood Cell Count 11.36 K/mm3 (4.00-11.30)
[2020-12-15 13:21] LABS: Alanine Aminotransfer (ALT/SGP 18 U/L (12-78); Albumin, Blood 3.4 g/dL (3.4-5.0); Albumin/Globulin Ratio 0.8 (0.8-1.8); Alk Phos 89 U/L (50-136); Anion Gap 10 mmol/L (6-16); Aspartate Aminotrans (AST/SGOT 10 U/L (12-37); Bilirubin, Total 0.5 mg/dL (0.1-1.0); Blood Urea Nitrogen 23 mg/dL (8-24); CO2, Blood 25 mmol/L (21-32); Calcium, Blood 9.3 mg/dL (8.5-10.1); Chloride, Blood 92 mmol/L (98-108); Creatinine, Blood 0.96 mg/dL (0.40-1.00); Globulin, Blood 4.2 g/dL (2.2-4.0); Glomerular Filtration Rate >60 (60-); Glucose, Blood 577 mg/dL (70-99); Potassium, Blood 3.5 mmol/L (3.5-5.5); Sodium, Blood 127 mmol/L (136-145); Total Protein, Blood 7.6 g/dL (6.4-8.2)
[2020-12-15] MEDS ORDERED: Prinivil10 MG PO (18:37)
[2020-12-15] MEDS ORDERED: TOPROL XL50 M1 PO (18:38)
[2020-12-15 21:51] LABS: Source, Urine Catheter
[2020-12-15 21:58] LABS: Bilirubin, Urine Neg (Neg); Blood, Urine Neg (Neg); Glucose Qualitative, Urine 4+ (Neg); Ketones, Urine Neg (Neg); Leukocyte Esterase, Urine 1+ (Neg); Nitrite, Urine Neg (Neg); Protein, Urine Neg (Neg); Urobilinogen, Urine NORM (Normal)
[2020-12-15 22:12] LABS: Appearance, Urine Hazy (Clear); Color, Urine Pale Yellow (P-Yellow)
[2020-12-15 22:17] LABS: U Amphetamine Screen Not Detected; U Barbituate Screen Not Detected; U Benzodiazapine Screen Not Detected; U Buprenorphine Screen Not Detected; U Cannabinoids Screen Not Detected; U Cocaine Screen Not Detected; U Methadone Screen Not Detected; U Methamphetamine Screen Not Detected; U Opiates Screen Not Detected; U Oxycodone Screen Not Detected; U Phencyclidine Screen Not Detected; U Propoxyphene Screen Not Detected
[2020-12-15 22:18] LABS: Bacteria Few /hpf; Red Blood Cells, Urine 0-2 /hpf (0-2); Squamous Epithelial Cells Few /hpf (Few)
--- NOTE | 2020-12-16 04:38 | NUR ---
SUMMARY PT ARRIVED TO FLOOR IN NO DISTRESS. PT TX PER EMAR FOR HYPERGLYCEMIA. PT IS CONFUSED AND UNSTEADY. PROVIDER JAGRUTI CALLED AND A NISHI VEST WAS ORDERED. PT HAS TOLERATED VEST WELL. PT CONTINUES TO HAVE DROOLING NOTED. PT HOB MAINTAINED AT 45 DEGREES TO REDUCE ASPIRATION RISK. PT ABLE TO FOLLOW DIRECTIONS. PT CURRENTLY SLEEPING IN NO DISTRESS. CALL LIGHT IN REACH AND BED ALARM ON.
[2020-12-16 05:32] LABS: BASOPHILS ABSOLUTE AUTO 0.05 K/mm3 (0.00-0.23); BASOPHILS PERCENT AUTO 1 % (0-2); EOSINOPHILS ABSOLUTE AUTO 0.18 K/mm3 (0.00-0.68); EOSINOPHILS PERCENT AUTO 2 % (0-6); Hematocrit 42.2 % (33.0-51.0); Hemoglobin 14.7 g/dL (11.5-16.0); IMMATURE GRAN ABSOLUTE AUTO 0.01 K/mm3 (0.00-0.10); IMMATURE GRAN PERCENT AUTO 0 % (0-1); LYMPHOCYTES ABSOLUTE AUTO 2.64 K/mm3 (0.84-5.20); LYMPHOCYTES PERCENT AUTO 29 % (21-46); MONOCYTES ABSOLUTE AUTO 0.49 K/mm3 (0.16-1.47); MONOCYTES PERCENT AUTO 5 % (4-13); Mean Corpuscular HGB 28.4 pg (26.0-34.0); Mean Corpuscular HGB Conc 34.8 g/dL (31.5-36.5); Mean Corpuscular Volume 82 fL (80-100); Mean Platelet Volume 9.8 fL (9.1-12.4); NEUTROPHILS ABSOLUTE AUTO 5.67 K/mm3 (1.96-9.15); NEUTROPHILS PERCENT AUTO 63 % (41-73); Platelet Count 280 K/mm3 (150-400); RDW Coefficient Variation 12.8 % (11.7-14.2); Red Blood Cell Count 5.17 M/mm3 (3.80-5.20); White Blood Cell Count 9.04 K/mm3 (4.00-11.30)
[2020-12-16 05:59] LABS: Anion Gap 8 mmol/L (6-16); Blood Urea Nitrogen 20 mg/dL (8-24); Bun/Creatinine Ratio 32.1 (12.0-20.0); CHOL/HDL RATIO 5.5; CO2, Blood 24 mmol/L (21-32); Chloride, Blood 101 mmol/L (98-108); Cholesterol 273 mg/dL (50-200); Creatinine, Blood 0.62 mg/dL (0.40-1.00); Glomerular Filtration Rate >60 (60-); Glucose, Blood 334 mg/dL (70-99); HDL Cholesterol 50 mg/dL (>39); LDL/HDL RATIO 3.6; Low Density Lipoprotein Chol 182 mg/dL (0-110); Potassium, Blood 3.7 mmol/L (3.5-5.5); Sodium, Blood 133 mmol/L (136-145); Triglycerides 205 mg/dL (30-160); Very Low Density Lipoprot Chol 41 mg/dL (6-32)
--- NOTE | 2020-12-16 06:31 | NUR ---
0610 PT HAD WITNESSED SZ LIKE ACTIVITY BY THIS RN. PT HAD RAPID REPETATIVE MOVMENTS OF HEAD AND MOUTH. THERE WAS NOTED STIFFING OF ARMS. ACTIVITY LAST APPOX 20-30 SECS. PT HAD A PERIOD OF POSTICTAL NOTED THAT LASTED FOR FEW MINUTES. WILL CALL [facility] PROVIDER/ PASS ON TO DAY RN. PT HAS SEIZURE PAD PRECAUTIONS APPLIED TO BED.
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
--- NOTE | 2020-12-17 04:14 | NUR ---
SHIFT SUMMARY ASSUMED CARE OF PT AT 1900. ORIENTATION UNKNOWN DUE TO PT DYSPHASIA. HEART SOUNDS REGULAR, TELE SHOS SINUS @ 74. LUNG SOUNDS CLEAR. PT HAS DIFFICULTY SWOLLOWING HAS SHOWN BY EXCESSIVE DROOLING. PT WOULD HAVE FITS DURING THE NIGHT WITH HER TONGUE MOVING AND HER HEAD SHACKING, PT SOUNDED IF SHE WAS HAVING TROUBLE BREATHING/ SWOLLOWING HER SALIVA BUT THEN WOULD STOP AND GO BACK TO SLEEP. THIS HAPPENED EVERY 20-60 MIN. PT L SIDE LITTLE MOVEMENT, THE ARM IS DISCOLORED AND SLITGHY SWOLLEN. PT HAS AN EXCORIATED ALEX AREA, LOTIONS APPLIED. PT WAS INCONTIENT T/O THE NIGHT. CALL LIGHT IN REACH, BED IN LOWEST POSTION.
--- NOTE | 2020-12-17 13:42 | NUR ---
1330 RECIEVED PT FROM MRI TRANSPORT STAFF. PT IS NOT FOLLOWING ANY COMMANDS. SPONT MOVEMENT OF ALL EXT ARE NOTED BUT NO BILLET ASSEMBLER OF FOLLOWING OF COMMANDS. R SIDE FACIAL DROOP IS NOTED. VS NOTED AND ADIQUATE FOR PT CVA STATUS. PT HAS ATTENDS ON. SATS ARE NOTED AT 98% ON ROOM AIR W/O BREATHING DISTRESS BUT PT IS BREATHING VERY SHALLOW AND NOT ABLE TO DEEP BREATH TO COMMAND. RR 20 RANGE AND IT APPERARS PT IS NOT ABLE TO ACTIVELY PROTECT HER AIRWAY. PER REPORT FROM JEFFREY ROMERO, PT WAS GIVEN INC DOSE OF KEPPRA THIS AM AND ATIVAN PRIOR TO GOING TO MRI. SEE EMAR.
--- NOTE | 2020-12-17 14:00 | NUR ---
Call back - Met with pt's SO. He expressed concern about pt having a stroke and requested prayer. Tavo also asked if Coin Machine Mechanicabimbola Noonan would be available tomorrow. Audible prayer offered on behalf of the the pt and Tavo. He verbalized gratitude for the interventions. Tavo talked about the 27 years the couple has been together.
--- NOTE | 2020-12-17 14:05 | NUR ---
ABOUT 5 MINUTES AGO JUST PT WAS INTERING ROOM, PT BEGAN WHAT WAS MOST LIKELY OBSERVED SEIZURE ACTIVITY ON THE FLOOR. PT MOUTH/JAW BEGAN MOVING UP AND DOWN AND APPEARING TO TALK WITH A FULL MOIST MOUTH OF LIQUID. PT WAS NOT MOVING ANY OTHER EXTREMES AT THIS TIME AND MOUTH/JAW ACTIVITY LASTED APPROX 20-30 SECONDS WITH MOUTH DROOLING PRESENT. AFTERWARD PT WAS NOT FOLLOWING ANY COMMANDS OR RECOGNIZING .
--- NOTE | 2020-12-17 14:18 | NUR ---
TRANSFER SUMMARY PATIENT WITH EXPRESSIVE APHASIA THIS SHIFT. PATIENT AWAKES TO VERBAL AND PHYSICAL STIMULI. PATIENT REMAINS WEAK. PATIENT WITH SEIZURE LIKE ACTIVITY EVERY 10-20 MINUTES THIS AM. PATIENT TURNED ON HER SIDE DURING THESE EPISODES TO PROTECT PATIENT'S AIRWAY. DR NOTIFIED, KEPRA INCREASED TO 1000 MG BID. PATIENT CONTINUES WITH SEIZURE LIKE ACTIVITY, LESS OFTEN OR INTENSE. PATIENT UNABLE TO FOLLOW MOST DIRECTIONS. PATIENT UP IMPULSIVELY 1X, UPSET AND DIFFICULT TO REDIRECT. PATIENT TRANSFERED TO ICU FOR INCREASED ABLILITY TO MONITOR PATIENT TO PROTECT AIRWAY. PATIENT TO IMAGING FOR MRA PRIOR TO TRANSFER.
--- NOTE | 2020-12-17 15:44 | NUR ---
ADAPTIVE PHYSICAL EDUCATION SPECIALIST JOSE RAUL REQUESTED CONFIRMATION THAT MRI WWO CONTRAST WAS ORDERED DUE TO NO CURRENT CREATININE. IT WAS CONFIRMED WITH DR LILLY THAT THIS ORDER IS CORRECT AND THAT IVF NS AT 75 ML PER MAINTANCE HAS BEEN ORDERED AND NOW STARTED.
--- NOTE | 2020-12-17 18:40 | NUR ---
173... pt transfered FOR MRI, ON ARRIVAL TO THE ROOM PT BEGAN THE SAME FACIAL/JAW SEIZURE ACTIVITY. ATIVAN 2 MG WAS GIVEN AND SEIZURE STOPPED BUT PT WAS UNABLE TO RELAX WITH SPONTANIOUS MOVEMENT AND MRI WAS ABORTED DUE TO RESTLESSNESS AND PT SAFETY ISSUES. 175 ON ARRIVAL TO ICU...RN IS NOW SCHEDULED TO TRANSFER VIA AIR TRANSPORT TO [facility]. 1814... PT REPORT WAS CALLED AND GIVEN TO TIMMY ROMERO. 182...REPORT WAS GIVEN TO PARAMETIC/PAINTER FOREMAN OF [facility]. IV IN L HAND NOTED TO BE BAD AND IVF STOPPED AND KEPPRA IVPB GIVEN TO PT VIA R WRIST IV. 183 ETA CALLED BACK TO TIMMY AND PT IS OUT OF UNIT WITH [facility] TEAM.
== END 2020-12-17 18:20 | disposition short-term general hospital (02) | DRG 64 ==
LOC: ER 12:35 → MEDS 18:41 → ICUE 12-17 12:31
PROVIDERS: Emergency Medicine; Student in an Organized Health Care Education/Training Program; ADMIT Internal Medicine
DX: I63.231 Cerebral infarction due to unspecified occlusion or stenosis of right carotid arteries (principal); I63.531 Cerebral infarction due to unspecified occlusion or stenosis of right posterior cerebral artery; I69.354 Hemiplegia and hemiparesis following cerebral infarction affecting left non-dominant side; E87.1 Hypo-osmolality and hyponatremia; G93.49 Other encephalopathy; R47.81 Slurred speech; R47.01 Aphasia; I10 Essential (primary) hypertension; E11.9 Type 2 diabetes mellitus without complications; F03.90 Unspecified dementia, unspecified severity, without behavioral disturbance, psychotic disturbance, mood disturbance, and anxiety; R32 Unspecified urinary incontinence; G40.901 Epilepsy, unspecified, not intractable, with status epilepticus; E78.5 Hyperlipidemia, unspecified; F32.9 Major depressive disorder, single episode, unspecified; Z88.5 Allergy status to narcotic agent; Z79.899 Other long term (current) drug therapy; Z79.82 Long term (current) use of aspirin; Z79.4 Long term (current) use of insulin
CPT/HCPCS: 36415; 70450; 70496; 70498; 70544; 71045; 80048; 80053; 80061; 81001; 82947; 83036; 84443; 85025; 87086; 93005; 93010; 96360; 96361; 96365; 96366; 99285-25; A9270; G0378; J1650; J1815; J1953; J2060; J7030; J7050; Q9967

== ENCOUNTER 2021-03-04 10:10 | Observation (INO) | payer OTHER ==
[~2021-03-04] VITALS: Ht 157.5 cm; Wt 61.2 kg
[~2021-03-04 10:10] MED LIST changes: +Prinivil10 MG PO; +TOPROL XL50 M1 PO
[2021-03-04 11:09] LABS: Source, Urine Catheter
[2021-03-04 11:13] LABS: Appearance, Urine Clear (Clear); Bilirubin, Urine Neg (Neg); Blood, Urine Neg (Neg); Color, Urine Yellow (P-Yellow); Glucose Qualitative, Urine 1+ (Neg); Ketones, Urine 3+ (Neg); Leukocyte Esterase, Urine 1+ (Neg); Nitrite, Urine Neg (Neg); Protein, Urine 2+ (Neg); Urobilinogen, Urine 1+ (Normal)
[2021-03-04 11:20] LABS: BASOPHILS ABSOLUTE AUTO 0.02 K/mm3 (0.00-0.23); BASOPHILS PERCENT AUTO 0 % (0-2); EOSINOPHILS ABSOLUTE AUTO 0.21 K/mm3 (0.00-0.68); EOSINOPHILS PERCENT AUTO 3 % (0-6); Hematocrit 39.6 % (33.0-51.0); IMMATURE GRAN ABSOLUTE AUTO 0.01 K/mm3 (0.00-0.10); IMMATURE GRAN PERCENT AUTO 0 % (0-1); LYMPHOCYTES ABSOLUTE AUTO 1.76 K/mm3 (0.84-5.20); LYMPHOCYTES PERCENT AUTO 27 % (21-46); MONOCYTES ABSOLUTE AUTO 0.66 K/mm3 (0.16-1.47); MONOCYTES PERCENT AUTO 10 % (4-13); Mean Corpuscular HGB 29.9 pg (26.0-34.0); Mean Corpuscular HGB Conc 35.4 g/dL (31.5-36.5); Mean Corpuscular Volume 84 fL (80-100); Mean Platelet Volume 8.6 fL (9.1-12.4); NEUTROPHILS ABSOLUTE AUTO 3.79 K/mm3 (1.96-9.15); NEUTROPHILS PERCENT AUTO 59 % (41-73); Platelet Count 237 K/mm3 (150-400); RDW Coefficient Variation 13.9 % (11.7-14.2); RDW Standard Deviation 42.5 fL (35.1-46.3); Red Blood Cell Count 4.69 M/mm3 (3.80-5.20); White Blood Cell Count 6.45 K/mm3 (4.00-11.30)
[2021-03-04 11:24] LABS: Bacteria Mod /hpf; Mucus Mod (0-Heavy); Red Blood Cells, Urine Not Seen /hpf (0-2); Squamous Epithelial Cells Few /hpf (Few)
[2021-03-04 11:25] LABS: U Amphetamine Screen Not Detected; U Barbituate Screen DETECTED; U Benzodiazapine Screen Not Detected; U Buprenorphine Screen Not Detected; U Cannabinoids Screen Not Detected; U Cocaine Screen Not Detected; U Methadone Screen Not Detected; U Methamphetamine Screen Not Detected; U Opiates Screen Not Detected; U Oxycodone Screen Not Detected; U Phencyclidine Screen Not Detected; U Propoxyphene Screen Not Detected
[2021-03-04 11:44] LABS: Alanine Aminotransfer (ALT/SGP 32 U/L (12-78); Albumin, Blood 3.7 g/dL (3.4-5.0); Alk Phos 114 U/L (50-136); Anion Gap 7 mmol/L (6-16); Aspartate Aminotrans (AST/SGOT 25 U/L (12-37); Bilirubin, Total 0.3 mg/dL (0.1-1.0); Blood Urea Nitrogen 13 mg/dL (8-24); CO2, Blood 29 mmol/L (21-32); Calcium, Blood 8.9 mg/dL (8.5-10.1); Chloride, Blood 106 mmol/L (98-108); Creatinine, Blood 0.57 mg/dL (0.40-1.00); Globulin, Blood 3.6 g/dL (2.2-4.0); Glomerular Filtration Rate >60 (60-); Glucose, Blood 230 mg/dL (70-99); Potassium, Blood 3.1 mmol/L (3.5-5.5); Sodium, Blood 142 mmol/L (136-145); Total Protein, Blood 7.3 g/dL (6.4-8.2)
[2021-03-04 12:13] LABS: International Normalized Ratio 1.15; Prothrombin Time Results 12.3 Sec (9.7-11.5)
[2021-03-04] MEDS ORDERED: ATORVASTATIN CA80 M1 PO (14:31)
[2021-03-04] MEDS ORDERED: CLOP75 PO (14:32)
[2021-03-04] MEDS ORDERED: Keppra PO (14:33)
[2021-03-04] MEDS ORDERED: PHENYTOIN SODI200 M1 PO (14:34)
[2021-03-04 16:12] LABS: Dilantin (Phenytoin), Total 48.4 ug/mL (10.0-20.0)
--- NOTE | 2021-03-04 18:43 | NUR ---
Patient arrived to unit and scooted over to hospital bed from [facility]. She is moving extremities. She is able to touch her finger to her nose R and L. No droop, pt's speech is somewhat slurred, however, states that she is already speaking better. Pressure wounding to low back and to gluteal fold. Will report to oncoming RN.
--- NOTE | 2021-03-04 19:00 | NUR ---
ASSUMED CARE RECEIVED REPORT FROM HEATHER JAMES. PT RESTING, IN NAD. AT THE BEDSIDE. DENY NEEDS. CALL LIGHT, POSSESSIONS IN REACH, BED IN LOW AND LOCKED POSITION WITH ALARMS ON.
--- NOTE | 2021-03-05 03:28 | NUR ---
PHYSICAL DIRECTOR SUMMARY PT ASLEEP, IN NAD. RESPS E/U. HAS BEEN SLEEPING T/O NIGHT. NO SEIZURE ACTIVITY NOTED, SEIZURE PADS IN PLACE TO BILATERAL UPPER SIDERAILS. PT DROWSY, BUT AROUSABLE. REMAINS AT BEDSIDE. NO ACUTE CONCERNS TO REPORT OVERNIGHT. NO ACUTE NEEDS ASSESSED AT THIS TIME. CALL LIGHT, POSSESSIONS IN REACH, BED IN LOW AND LOCKED POSITION WITH ALARMS ON. WILL REPORT OFF TO ONCOMING RN.
[2021-03-05 05:01] LABS: Hematocrit 39.6 % (33.0-51.0); Hemoglobin 13.7 g/dL (11.5-16.0); Mean Corpuscular HGB 29.7 pg (26.0-34.0); Mean Corpuscular HGB Conc 34.6 g/dL (31.5-36.5); Mean Corpuscular Volume 86 fL (80-100); Platelet Count 224 K/mm3 (150-400); RDW Coefficient Variation 14.1 % (11.7-14.2); RDW Standard Deviation 43.5 fL (35.1-46.3); Red Blood Cell Count 4.62 M/mm3 (3.80-5.20)
[2021-03-05 05:32] LABS: Alanine Aminotransfer (ALT/SGP 35 U/L (12-78); Albumin, Blood 3.4 g/dL (3.4-5.0); Albumin/Globulin Ratio 0.9 (0.8-1.8); Alk Phos 106 U/L (50-136); Anion Gap 6 mmol/L (6-16); Aspartate Aminotrans (AST/SGOT 26 U/L (12-37); Bilirubin, Total 0.3 mg/dL (0.1-1.0); Blood Urea Nitrogen 13 mg/dL (8-24); Bun/Creatinine Ratio 27.4 (12.0-20.0); CHOL/HDL RATIO 2.9; CO2, Blood 29 mmol/L (21-32); Calcium, Blood 8.9 mg/dL (8.5-10.1); Chloride, Blood 107 mmol/L (98-108); Cholesterol 178 mg/dL (50-200); Creatinine, Blood 0.48 mg/dL (0.40-1.00); Globulin, Blood 3.6 g/dL (2.2-4.0); Glomerular Filtration Rate >60 (60-); Glucose, Blood 158 mg/dL (70-99); HDL Cholesterol 61 mg/dL (>39); LDL/HDL RATIO 1.5; Low Density Lipoprotein Chol 94 mg/dL (0-110); Magnesium, Blood 1.6 mg/dL (1.6-2.4); Potassium, Blood 3.3 mmol/L (3.5-5.5); Sodium, Blood 142 mmol/L (136-145); Thyroid Stimulating Hormone 0.523 uIU/mL (0.360-4.800); Triglycerides 117 mg/dL (30-160); Very Low Density Lipoprot Chol 23 mg/dL (6-32)
--- NOTE | 2021-03-05 11:00 | NUR ---
upon recieving a referral for spiritual care, I visit patient. Patient is sitting up in bed and alert. Patient's spouse Tavo is bedside. Patient repeats over and over that she is scared. The primary fear is that her spouse will leave her, not just from the hospital but from her life. He rminds her about their 27yrs of marriage and that he is not going anywhere. Patient talks briefly about her amada. I provide anxiety containment, therapeutic listening and prayer. Patient responds well and shows signs of increased peace. I will continue to remain available to patient and family.
--- NOTE | 2021-03-05 17:07 | NUR ---
SHIFT SUMMARY PATIENT A/O TO SELF AND SPOUSE THIS SHIFT. PATIENT ANXIOUS WHEN SPOUSE IS NOT IN THE ROOM, CALLING OUT FOR HIM THIS AM CONTINUOUSLY, LESS SO THIS AFTERNOON. PATIENT REMAINS IN BED THROUGHOUT THIS SHIFT. PATIENT NAUSEAUS THIS SHIFT, MEDICATED PER EMAR. PATIENT'S SPOUSE IN THE ROOM FOR MOST OF THIS SHIFT. PATIENT'S MOOD IS VERY LABILE THIS SHIFT, SWITCHING FROM "LOVING" THE STAFF TO "HATING" THEM AND CURSING. PATIENT AND SPOUSE SPOKE WITH OT THIS AM. PT UNABLE TO SEE PATIENT DUE TO NAUSEA. PATIENT CURRENTLY RESTING IN BED, SPOUSE AT BEDSIDE.
[2021-03-06 06:24] LABS: Magnesium, Blood 1.4 mg/dL (1.6-2.4)
--- NOTE | 2021-03-06 06:24 | NUR ---
SHIFT SUMMARY NO ACUTE CHANGES THIS SHIFT, SPOUSE AT BEDSIDE T/O THE SHIFT, PT SLEPT T/O THE NIGHT AWAKING EASILY FOR CARE AND SENIOR UNIX ADMINISTRATOR, MEDICATED 1X FOR NAUSEA, NO OTHER C/O ANY KIND, SLEEPING AT THIS TIME, CALL LIGHT IN REACH, WILL CONT TO MONITOR UNTIL REPORT GIVEN TO DAY RN.
[2021-03-06 06:26] LABS: Hematocrit 38.8 % (33.0-51.0); Hemoglobin 13.4 g/dL (11.5-16.0); Mean Corpuscular HGB 30.2 pg (26.0-34.0); Mean Corpuscular HGB Conc 34.5 g/dL (31.5-36.5); Mean Corpuscular Volume 88 fL (80-100); Mean Platelet Volume 9.1 fL (9.1-12.4); Platelet Count 218 K/mm3 (150-400); RDW Coefficient Variation 14.2 % (11.7-14.2); RDW Standard Deviation 44.6 fL (35.1-46.3); Red Blood Cell Count 4.43 M/mm3 (3.80-5.20)
[2021-03-06 06:43] LABS: Anion Gap 6 mmol/L (6-16); Blood Urea Nitrogen 9 mg/dL (8-24); Bun/Creatinine Ratio 18.8 (12.0-20.0); CO2, Blood 26 mmol/L (21-32); Calcium, Blood 8.6 mg/dL (8.5-10.1); Chloride, Blood 109 mmol/L (98-108); Creatinine, Blood 0.48 mg/dL (0.40-1.00); Glomerular Filtration Rate >60 (60-); Glucose, Blood 108 mg/dL (70-99); Potassium, Blood 3.9 mmol/L (3.5-5.5); Sodium, Blood 141 mmol/L (136-145)
[2021-03-06 07:06] LABS: Dilantin (Phenytoin), Total 42.6 ug/mL (10.0-20.0)
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
--- NOTE | 2021-03-06 17:43 | NUR ---
Provided emotional support to spouse, Tavo. Aaliyah and Tavo are well-known to me from previous hospitalizations. Aaliyah awakend briefly, but appeared confused and complained about feeling tired. Tavo spoke to me at length about the stress of caring for Aaliyah and dealing with adult children's crisis'. Provided prayer with both. Both became quite tearful and expressed enormous love for one another. I will remain available.
--- NOTE | 2021-03-06 19:38 | NUR ---
BEDSIDE REPORT GIVEN BY DEREJE ROMERO. PT AWAKE. AT BEDSIDE. RESP E/U ON RA. NO NEEDS AT THIS TIME. WILL CONTINUE TO PROVIDE CARE T/O SHIFT. CALL LT IN REACH.
--- NOTE | 2021-03-06 21:58 | NUR ---
PT RESTING QUIETLY. AT BEDSIDE. NO NEEDS AT THIS TIME. CALL LT IN REACH.
--- NOTE | 2021-03-07 00:05 | NUR ---
PT MORE ALERT, STATES HOW ARE YOU DOING? PT DENIES NEEDS. AT BEDSIDE. CALL LT IN REACH.
[2021-03-07 05:04] LABS: BASOPHILS ABSOLUTE AUTO 0.01 K/mm3 (0.00-0.23); BASOPHILS PERCENT AUTO 0 % (0-2); EOSINOPHILS ABSOLUTE AUTO 0.26 K/mm3 (0.00-0.68); EOSINOPHILS PERCENT AUTO 4 % (0-6); Hematocrit 41.4 % (33.0-51.0); Hemoglobin 14.4 g/dL (11.5-16.0); IMMATURE GRAN ABSOLUTE AUTO 0.01 K/mm3 (0.00-0.10); IMMATURE GRAN PERCENT AUTO 0 % (0-1); LYMPHOCYTES ABSOLUTE AUTO 2.91 K/mm3 (0.84-5.20); LYMPHOCYTES PERCENT AUTO 44 % (21-46); MONOCYTES ABSOLUTE AUTO 0.78 K/mm3 (0.16-1.47); MONOCYTES PERCENT AUTO 12 % (4-13); Mean Corpuscular HGB 29.6 pg (26.0-34.0); Mean Corpuscular HGB Conc 34.8 g/dL (31.5-36.5); Mean Corpuscular Volume 85 fL (80-100); NEUTROPHILS ABSOLUTE AUTO 2.69 K/mm3 (1.96-9.15); NEUTROPHILS PERCENT AUTO 40 % (41-73); Platelet Count 235 K/mm3 (150-400); RDW Standard Deviation 42.9 fL (35.1-46.3); Red Blood Cell Count 4.86 M/mm3 (3.80-5.20); White Blood Cell Count 6.66 K/mm3 (4.00-11.30)
--- NOTE | 2021-03-07 05:07 | NUR ---
PT RESTING QUIETLY. CALL LT IN REACH.
--- NOTE | 2021-03-07 05:18 | NUR ---
SHIFT SUMMARY: PT MOSTLY SOMNULENT DURING BEGINNING OF SHIFT, MORE ALERT LATER IN SHIFT. TOOK MEDS WHOLE IN PUDDING WITHOUT DIFFICULTY. ON RA. NO COMPLAINTS OF PAIN, SOB OR NAUSEA. TWO INCONTINENT VOIDS IN ATTENDS, AND ONE LARGE BROWN FORMED STOOL. MEPILEX FOAM DRESSING CHANGED TO GLUTEAL FOLD. NO ACUTE CHANGES. WILL CONTINUE TO PROVIDE CARE UNTIL SHIFT REPORT.
[2021-03-07 05:39] LABS: Alanine Aminotransfer (ALT/SGP 43 U/L (12-78); Albumin, Blood 3.3 g/dL (3.4-5.0); Albumin/Globulin Ratio 0.9 (0.8-1.8); Alk Phos 101 U/L (50-136); Anion Gap 7 mmol/L (6-16); Aspartate Aminotrans (AST/SGOT 34 U/L (12-37); Bilirubin, Total 0.3 mg/dL (0.1-1.0); Blood Urea Nitrogen 9 mg/dL (8-24); Bun/Creatinine Ratio 19.5 (12.0-20.0); CO2, Blood 26 mmol/L (21-32); Chloride, Blood 106 mmol/L (98-108); Creatinine, Blood 0.46 mg/dL (0.40-1.00); Globulin, Blood 3.7 g/dL (2.2-4.0); Glomerular Filtration Rate >60 (60-); Glucose, Blood 154 mg/dL (70-99); Magnesium, Blood 1.9 mg/dL (1.6-2.4); Potassium, Blood 4.2 mmol/L (3.5-5.5); Sodium, Blood 139 mmol/L (136-145)
[2021-03-07 05:47] LABS: Dilantin (Phenytoin), Total 45.6 ug/mL (10.0-20.0)
--- NOTE | 2021-03-07 18:33 | NUR ---
SHIFT SUMMARY INTERMITTENT AGITATION EXACERBATED BY 'S ABSENCE. ORDER FOR PRN ZYPREXA GIVEN DUE TO PATIENT BEING TEARFUL AND PARANOID STATING "I AM SO AFRAID" REPEATEDLY. IMPULSIVE AT TIMES. WEAK WITH POOR SAFETY AWARENESS/JUDGEMENT. HOME WHEN DILANTIN LEVEL IS WNL.
--- NOTE | 2021-03-08 04:23 | NUR ---
SUMMARY PT WAS GIVEN ZYPREXA AT BEGINNING OF SHIFT. PT WAS UNABLE TO TAKE NIGHT KEPPRA DUE TO SOMNOLENCE AND BEING A ASPIRATION RISK. PT HAS BEEN SLEEPING W/OUT ISSUE T/OUT SHIFT. PT STAYED THE NIGHT. PT CURRENTLY SLEEPING IN NO DISTRESS. CALL LIGHT IN REACH AND BED ALARM ON.
[2021-03-08 05:26] LABS: Hematocrit 40.5 % (33.0-51.0); Mean Corpuscular HGB Conc 34.6 g/dL (31.5-36.5); Mean Corpuscular Volume 87 fL (80-100); Mean Platelet Volume 8.9 fL (9.1-12.4); Platelet Count 220 K/mm3 (150-400); RDW Coefficient Variation 14.3 % (11.7-14.2); RDW Standard Deviation 44.7 fL (35.1-46.3); Red Blood Cell Count 4.66 M/mm3 (3.80-5.20); White Blood Cell Count 4.32 K/mm3 (4.00-11.30)
[2021-03-08 06:09] LABS: Alanine Aminotransfer (ALT/SGP 44 U/L (12-78); Albumin, Blood 3.3 g/dL (3.4-5.0); Albumin/Globulin Ratio 0.9 (0.8-1.8); Alk Phos 98 U/L (50-136); Anion Gap 5 mmol/L (6-16); Aspartate Aminotrans (AST/SGOT 33 U/L (12-37); Bilirubin, Total 0.2 mg/dL (0.1-1.0); Blood Urea Nitrogen 8 mg/dL (8-24); Bun/Creatinine Ratio 18.1 (12.0-20.0); CO2, Blood 28 mmol/L (21-32); Calcium, Blood 9.1 mg/dL (8.5-10.1); Chloride, Blood 107 mmol/L (98-108); Creatinine, Blood 0.44 mg/dL (0.40-1.00); Globulin, Blood 3.6 g/dL (2.2-4.0); Glomerular Filtration Rate >60 (60-); Glucose, Blood 167 mg/dL (70-99); Potassium, Blood 4.1 mmol/L (3.5-5.5); Sodium, Blood 140 mmol/L (136-145); Total Protein, Blood 6.9 g/dL (6.4-8.2)
[2021-03-08 06:12] LABS: Dilantin (Phenytoin), Total 39.8 ug/mL (10.0-20.0)
--- NOTE | 2021-03-08 18:42 | NUR ---
SHIFT SUMMARY SLEPT MOST OF THE SHIFT, AROUSABLE. PLEASANT AND COOPERATIVE WHEN AWAKE. CLEARER MENTATION TODAY THAN YESTERDAY WHEN INTERACTING. POOR APPETITE.
--- NOTE | 2021-03-09 05:35 | NUR ---
SUMMARY NO NEW CHANGES. PT PLESANT AND COOPERATIVE. PT STAYED THE NIGHT. PT TX FOR NAUSEA PER EMAR W/ RELIEF. PT CURRENTLY SLEEEPING IN NO DISTRESS. CALL LIGHT IN REACH AND BED ALARM ON.
[2021-03-09 06:37] LABS: Dilantin (Phenytoin), Total 35.9 ug/mL (10.0-20.0)
[2021-03-09] MEDS ORDERED: ONDA4ODT MM (11:20)
--- NOTE | 2021-03-09 12:08 | NUR ---
DISCHARGE NOTE PT IS AO. IV REMOVED BY THIS RN PER DOCUMENTATION. THIS RN REVIEWED DC INSTRUCTIONS AND MEDICATIONS WITH AND PT WHO VERBALIZED UNDERSTANDING. PT ASSISTED INTO HOME CLOTHING BY . PT ASSISTED INTO WHEELCHAIR AND WHEELED OFF UNIT BY MUSICAL INSTRUMENT MECHANIC. BELONGINGS PRESENT AT DC. PT LEFT IN PRIVATE VEHICLE WITH .
== END 2021-03-09 12:12 | disposition home or self-care (01) ==
LOC: ER 10:10 → MEDS 10:11 → ER 14:25 → MEDS 14:25 → ENPENDDIS 03-09 10:50 → MEDS 03-09 12:12
PROVIDERS: Student in an Organized Health Care Education/Training Program; ADMIT Internal Medicine
DX: G93.41 Metabolic encephalopathy (principal); E11.9 Type 2 diabetes mellitus without complications; T42.0X5A Adverse effect of hydantoin derivatives, initial encounter; Z86.69 Personal history of other diseases of the nervous system and sense organs; I69.954 Hemiplegia and hemiparesis following unspecified cerebrovascular disease affecting left non-dominant side; I10 Essential (primary) hypertension; G40.909 Epilepsy, unspecified, not intractable, without status epilepticus; N39.0 Urinary tract infection, site not specified; Z79.4 Long term (current) use of insulin; Z88.5 Allergy status to narcotic agent
CPT/HCPCS: 36415; 51701; 70450; 80048; 80053; 80061; 80177; 80185; 81001; 82140; 82947; 83036; 83735; 84443; 84484; 85025; 85027; 85610; 85651; 87086; 93005; 93010; 94760; 96365-59; 96366; 96367; 96372; 96375; 96376; 97110; 97110-CO; 97162; 97165; 97530; 97535; 97535-CO; 99285-25; A9270; G0378; G0480; J0696; J1650; J2405; J2550; J3475; J7050

== ENCOUNTER → 2021-10-09 | Outpatient (CLI) | payer OTHER ==
[~2021-10-09] MED LIST changes: +ATORVASTATIN CA80 M1 PO; +CLOP75 PO; +Keppra PO; +ONDA4ODT MM; +PHENYTOIN SODI200 M1 PO
== END | disposition home or self-care (01) ==
LOC: LAB SHORT 14:52 → LAB 14:52
DX: R30.9 Painful micturition, unspecified (principal)
CPT/HCPCS: 87077; 87086; 87186

== ENCOUNTER → 2022-04-12 | Outpatient (CLI) | payer OTHER ==
[2022-04-17 11:10] LABS: HPV 16 Negative (Negative); HPV 18 Negative (Negative); HPV OTHER HR TYPES Negative (Negative)
== END | disposition home or self-care (01) ==
LOC: LAB SHORT 14:12 → LAB 14:12
PROVIDERS: Family Medicine
DX: Z01.419 Encounter for gynecological examination (general) (routine) without abnormal findings (principal)
CPT/HCPCS: 87624; G0123

== ENCOUNTER 2022-11-17 14:02 | Inpatient (IN) | payer OTHER ==
[~2022-11-17] VITALS: Ht 157.5 cm; Wt 76.2 kg
[~2022-11-17 14:02] MED LIST changes: +BASAGLAR K100 UNIT/3 SC; -BASAGLAR K100 UNIT/4 SC
[2022-11-17 14:54] LABS: BASOPHILS ABSOLUTE AUTO 0.05 K/mm3 (0.00-0.23); BASOPHILS PERCENT AUTO 1 % (0-2); EOSINOPHILS ABSOLUTE AUTO 0.24 K/mm3 (0.00-0.68); EOSINOPHILS PERCENT AUTO 4 % (0-6); Hematocrit 43.6 % (33.0-51.0); IMMATURE GRAN ABSOLUTE AUTO 0.01 K/mm3 (0.00-0.10); IMMATURE GRAN PERCENT AUTO 0 % (0-1); LYMPHOCYTES ABSOLUTE AUTO 2.07 K/mm3 (0.84-5.20); LYMPHOCYTES PERCENT AUTO 31 % (21-46); MONOCYTES ABSOLUTE AUTO 1.01 K/mm3 (0.16-1.47); MONOCYTES PERCENT AUTO 15 % (4-13); Mean Corpuscular HGB 28.3 pg (26.0-34.0); Mean Corpuscular HGB Conc 34.4 g/dL (31.5-36.5); Mean Corpuscular Volume 82 fL (80-100); Mean Platelet Volume 9.6 fL (9.1-12.4); NEUTROPHILS ABSOLUTE AUTO 3.39 K/mm3 (1.96-9.15); NEUTROPHILS PERCENT AUTO 50 % (41-73); Platelet Count 224 K/mm3 (150-400); RDW Standard Deviation 38.9 fL (35.1-46.3); White Blood Cell Count 6.77 K/mm3 (4.00-11.30)
[2022-11-17 15:22] LABS: Albumin, Blood 3.7 g/dL (3.4-5.0); Albumin/Globulin Ratio 0.9 (0.8-1.8); Bilirubin, Total 0.9 mg/dL (0.1-1.0); Bun/Creatinine Ratio 23.3 (12.0-20.0); Calcium, Blood 9.2 mg/dL (8.5-10.1); Creatinine, Blood 0.64 mg/dL (0.40-1.00); Globulin, Blood 4.2 g/dL (2.2-4.0); Potassium, Blood 4.1 mmol/L (3.5-5.5); Total Protein, Blood 7.9 g/dL (6.4-8.2)
[2022-11-17] MEDS ORDERED: INSULIN LI100 UNIT/5 (16:01)
[2022-11-17 16:26] LABS: Influenza A, PCR NEGATIVE (NEGATIVE); Influenza B, PCR NEGATIVE (NEGATIVE); Resp Syncytial Virus, PCR NEGATIVE (NEGATIVE); SARS-Cov-2 (COVID-19) PCR, MMC NEGATIVE (NEGATIVE)
[2022-11-17 20:12] LABS: Base Excess Venous -3.2 mmol/L; Bicarbonate Venous 21.8 mmol/L (24.0-30.0); PCO2 Venous 41.9 mmHg (38-42); pH Blood Venous 7.34 (7.34-7.37)
[2022-11-17 21:25] VITALS: BP 156/97
--- NOTE | 2022-11-17 23:31 | NUR ---
Notified by PCT that patient reports CP. New EKG obtained that appears similar to EKG obtained earlier. Charge nurse in to assess patient, appears to be more pleuritic in nature. RT contacted for breathing treatment. Trops trending down.
[2022-11-17 23:42] VITALS: BP 183/92
[2022-11-18] VITALS (11 sets, daily range): BP systolic 95–183; BP diastolic 60–113
[2022-11-18] LABS: Adenovirus Not Detected (NOT DETECT); Bordetella pertussis Not Detected (NOT DETECT); Chlamydophila pneumoniae Not Detected (NOT DETECT); Coronavirus 229E Not Detected (NOT DETECT); Coronavirus HKU1 Not Detected (NOT DETECT); Coronavirus NL63 Not Detected (NOT DETECT); Coronavirus OC43 Not Detected (NOT DETECT); Human Metapneumovirus Detected (NOT DETECT); Human Rhinovirus/Enterovirus Not Detected (NOT DETECT); Influenza A/2009-H1 Not Detected (NOT DETECT); Influenza A/H1 Not Detected (NOT DETECT); Influenza A/H3 Not Detected (NOT DETECT); Influenza B Not Detected (NOT DETECT); Mycoplasma pneumoniae Not Detected (NOT DETECT); Parainfluenza Virus 1 Not Detected (NOT DETECT); Parainfluenza Virus 2 Not Detected (NOT DETECT); Parainfluenza Virus 3 Not Detected (NOT DETECT); Parainfluenza Virus 4 Not Detected (NOT DETECT); Respiratory Syncytial Virus Not Detected (NOT DETECT); SARS-Cov-2 (COVID-19), BioFire Not Detected (NOT DETECT)
--- NOTE | 2022-11-18 00:30 | NUR ---
Resident contacted regarding SBP 170's. PRN ordered.
--- NOTE | 2022-11-18 01:11 | NUR ---
Called into room, patients states patient trying to pull everything off including IV. Resecured IV, replaced tele pads etc.. Patients (Tavo) states that the steroids have her "amped" up and unable to sleep. However the Ativan given in the ED only made her more confused and did not help. Order for Melatonin obtained.
[2022-11-18 02:53] LABS: Hematocrit 42.6 % (33.0-51.0); Hemoglobin 14.3 g/dL (11.5-16.0); Mean Corpuscular HGB 28.3 pg (26.0-34.0); Mean Corpuscular HGB Conc 33.6 g/dL (31.5-36.5); Mean Corpuscular Volume 84 fL (80-100); Mean Platelet Volume 10.1 fL (9.1-12.4); Platelet Count 223 K/mm3 (150-400); RDW Coefficient Variation 13.2 % (11.7-14.2); Red Blood Cell Count 5.05 M/mm3 (3.80-5.20); White Blood Cell Count 5.69 K/mm3 (4.00-11.30)
[2022-11-18 03:08] LABS: Bun/Creatinine Ratio 27.5 (12.0-20.0); Calcium, Blood 9.4 mg/dL (8.5-10.1); Creatinine, Blood 0.66 mg/dL (0.40-1.00); Potassium, Blood 3.6 mmol/L (3.5-5.5)
--- NOTE | 2022-11-18 03:44 | NUR ---
Patient has at bedside constantly attempting to stop and redirect patient not to pull at lines. Patient has managed to pull out 1 IV and tele leads multiple times along with briefs and purewick. 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 stated shes had to be restrained before in the hospital and both are agreeable to this plan. Plan discussed for discontinuation of restraints.
--- NOTE | 2022-11-18 04:24 | NUR ---
Tele changes noted, CP returned to patient. New EKG done with differences from previous EKG. Resident contacted, Nitro ordered.
--- NOTE | 2022-11-18 05:00 | NUR ---
Assumed care of pt at 2112, as an ER admit. A/O to self and . 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 Patient describes CP (see previous note), however EKG similar to admitting EKG. As night progressed Tele changes appeared and repeat EKG showed changes - see previous RN notes. Significant audible expiratory wheezes noted t/o with at times tachypnea in low 20's. Patient reports breathing treatments helping greatly. ST 100-130 on tele, SBP elevated few times during night - medicated per emar with good effect. BLE 1+ pitting edema. Urinary incontinence (patient baseline) noted, purewick applied with great output of yellow/clear urine. Will report to dayshift RN.
[2022-11-18 06:02] LABS: Anti-Xa UFH, PHA Monitoring <0.10 IU/mL; International Normalized Ratio 1.05
--- NOTE | 2022-11-18 06:27 | NUR ---
Patient becoming increasingly more agitated as PRN med given in ED wears off. Hospitalist contacted, updated on patient condition and ordered PRN.
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
--- NOTE | 2022-11-18 09:32 | NUR ---
AM NOTE: ASSUMED CARE AT SHIFT CHANGE THIS AM, REPORT RECEIVED FROM NOC RN. IN THE ROOM AT THE BEDSIDE RT CALLED THIS RN REPORTING PT PULLED HER PUREWICK AND THREW ON THE FLOOR AND STARTING TO GET REALLY AGITATED. WHEN THIS NURSE CAME IN PT WAS YELLING TELLING HER SHE WAS KIDNAPPED PT WAS REORIENTED, PT PULLING ON RESTRAINTS TRYING TO SIT UP AND GET OUT OF BED, PT GOT SITUATED IN BED CHANGED ATTENDS AND REPOSITIONED. PT REALLY CONFUSED, ONLY ALERT TO SELF AND FAMILY, SHORT TERM MEMORY LOSS, FLIGHT OF IDEAS. TELE CALLED PT HAD 9 BEATS RUN OF [place] PT WAS ASYMPTOMATIC ALSO HRR ST SUSTAINING AT 140'S WITH SBP ELEVATED AT 160-180'S, SATS ABOVE 94% ON RA PT VERY TACHYPNEIC LUNGS TIGHT WITH EXPIRATORY WHEEZE UPON AUSCULTATION, AFEBRILE. CALLED DR LINTON AND MADE AWARE SAW PT DURING MED PASS ALSO DR BACON CAME TO SEE THE PT RECOMMENDED TO TREAT ASTHMA FIRST BEFORE DOING ANY PROCEDURES. HYDRALAZINE 10MG IV WAS GIVEN SBP WENT DOWN TO 140'S, PT STARTED ON CARDIZEM PO WELL HEP GTT STOPPED PER DR BACON TO START ON LOVENOX SHOT. SOLUTION MANAGER IN THE ROOM AT THIS TIME.
--- NOTE | 2022-11-18 17:50 | NUR ---
PT SUMMARY: SEE PREVIOUS NOTE. PT WAS MOSLTY AGITATED, CONFUSED, COMBATIVE, CUSSING ALL MORNING PULLING ON LINES AND RESTRAINTS. PROVIDER MADE AWARE SINCE PT HAS BEEN TACHYPNEIC AND WORKED UP WITH SATS 88-91% ON RA EVEN AFTER RT ADMINISTER BREATHING TX ORDER RECEIVED FOR ZYPREXA IM 10MG ONE TIME DOSE THEN PT SLEPT EVER SINCE. PT PLACED ON 2L OF O2 VIA NASAL CANNULA PT DESATS TO 85% WHILE ASLEEP. COULDNT GET AN ACCURATE READING AD PT GETS COMBATIVE AND CUSSES WHEN BLOOD PRESSURE GOES OFF ADN TIGHTENS. HAS BEEN AT THE BEDSIDE ALL AHIFT UPDATE WITH PLAN OF CARE. HRR NOW AT 100'S PER RATE SR PER TELE PT HAS INCREASED PLONGED QTC 0.52. BLOOD SUGAR HAS BEEN ELEVATED >350 SWITCHED SLIDING SCALE TO HIGH AND INCREASED LANTUS TO 50U AT BEDTIME. PT STILL ASLEEP IN BED REMAINED INCONTINENT, PT WONT KEEP PUREWICK IN PLACE. CALL LIGHTS IN REACH WILL REPORT TO ONCOMING SHIFT
[2022-11-19 03:29] VITALS: BP 92/52
--- NOTE | 2022-11-19 04:16 | NUR ---
TALKED TO DR. FRANKS ABOUT PT'S BP PT'S BP HAS BEEN TRENDING DOWN, EVEN WITH HER CARDIAC MEDS BEING HELD. DR. FRANKS NOTIFIED AND SAID CONTINUE TO MONITOR AND CALL BACK IF THE SYSTOLIC <90 OR MAP <60. BP'S CHANGED TO Q45 MIN. SEE NOTES FOR ANY UPDATES.
[2022-11-19 04:57] LABS: BASOPHILS PERCENT AUTO 0 % (0-2); EOSINOPHILS PERCENT AUTO 0 % (0-6); Hematocrit 38.4 % (33.0-51.0); Hemoglobin 12.8 g/dL (11.5-16.0); IMMATURE GRAN ABSOLUTE AUTO 0.03 K/mm3 (0.00-0.10); IMMATURE GRAN PERCENT AUTO 0 % (0-1); LYMPHOCYTES ABSOLUTE AUTO 1.07 K/mm3 (0.84-5.20); LYMPHOCYTES PERCENT AUTO 10 % (21-46); MONOCYTES ABSOLUTE AUTO 0.31 K/mm3 (0.16-1.47); MONOCYTES PERCENT AUTO 3 % (4-13); Mean Corpuscular HGB 28.1 pg (26.0-34.0); Mean Corpuscular HGB Conc 33.3 g/dL (31.5-36.5); Mean Corpuscular Volume 84 fL (80-100); Mean Platelet Volume 9.9 fL (9.1-12.4); NEUTROPHILS ABSOLUTE AUTO 9.34 K/mm3 (1.96-9.15); NEUTROPHILS PERCENT AUTO 87 % (41-73); Platelet Count 213 K/mm3 (150-400); RDW Coefficient Variation 13.4 % (11.7-14.2); RDW Standard Deviation 41.2 fL (35.1-46.3); Red Blood Cell Count 4.55 M/mm3 (3.80-5.20); White Blood Cell Count 10.75 K/mm3 (4.00-11.30)
[2022-11-19 05:01] VITALS: BP 106/63
[2022-11-19 06:05] LABS: Bun/Creatinine Ratio 35.3 (12.0-20.0); Calcium, Blood 9.2 mg/dL (8.5-10.1); Creatinine, Blood 1.19 mg/dL (0.40-1.00); Potassium, Blood 3.4 mmol/L (3.5-5.5)
--- NOTE | 2022-11-19 06:11 | NUR ---
SHIFT SUMMARY PT IS A&OX2, SELF AND . SHE HAS BEEN LETHARGIC AND BARELY RESPONDING OR FOLLOWING COMMANDS. WHEN THE PT IS AWAKE SHE IS AGITATED, CUSSING, BEING COMBATIVE, AND PULLING AT EVERYTHING. HER IS AT BEDSIDE AND IS TRYING TO HELP REDIRECT HER. THE PT DOES NOT WAKE UP ENOUGH TO HAVE ANY PO INTAKE SO PO MEDICATIONS WERE HELD. I TALKED TO DR. FRANKS AND MADE HIM AWARE, HER PO KEPERRA WAS CHANGED TO IV. THE PT HAS HAD NO COMPLAINTS THIS SHIFT, BUT HER BP HAS BEEN TRENDING DOWN. DR. FRANKS WAS MADE AWARE, SEE PREVIOUS NOTE FOR MORE INFORMATION. SHE HAS BEEN SR/ST ON TELE AND DENIES ANGINA OR CHEST PRESSURE. PT HAS BEEN Q2 TURN, HAS BILATERAL UPPER SOFT WRIST RESTRAINTS, AND HAS NO VOIDED THIS SHIFT. WHEN BLADDER SCANNED SHE HAD 250CC S IN HER BLADDER. HER BED ALARM IS ON, CALL LIGHT IS IN REACH, AND BED IS IN LOW. SEE NOTES FOR ANY UPDATES.
--- NOTE | 2022-11-19 08:00 | NUR ---
Received report from Rossy ROMERO. Patient has been resting all morning and awoke for assessment. She is on 3L O2 via HF NC and sats >90%. Speech is slow and clear and is able to communnicate most needs. She is alert to self and spouse, but not to place or situation. She has exp wheezes and diminished in artie based. Abd is mildly distended and slightly tender to palp in x4 quads. She has attends in place. PLASENCIA but weak. Will place ST, PT, OT therapies orders as patient needs to eat, CBG 371 and new coverage added. has been in. at bedside and very invoved with care.
--- NOTE | 2022-11-19 11:03 | NUR ---
Patient doing better and seems to be more alert. Student did oral care. She tolerated water and pills in applesauce and no signs of coughing or aspiration and spoke with ST and gave update. Restraints removed and doing well. Bolus 250ml hr infusing with potassium. remains at bedside involved in care.
--- NOTE | 2022-11-19 13:30 | NUR ---
Patient has been sitting up in chair post OT and ST. She is [facility] soft diet r/t no teeth and dentures poor fit and does not wear them or have them with her. VSS. She remains on 3L O2 via HF NC and sats >90%. She was a full 1 person transfer assist. is great help with keeping patient calm and on task. She has been less confused than earlier this am.
--- NOTE | 2022-11-19 15:30 | NUR ---
Patient has been back to bed and resting. she has been getting a little disoriented with sleep but rediect and is very polite. She has been tolerating meds well. She has stated that she has sore throat and will address with doctor. Oral care done, throat is red towards back. She remains on 3L O2 via HF NC and sats >90%.
[2022-11-19 17:04] VITALS: BP 132/82
--- NOTE | 2022-11-19 18:33 | NUR ---
Patient is showing signs of sundowners and states that she is diagnosed. She was frustraed form sore throat and got order for cepocol lozengers and tessolon pearls for cough, although while waiting she pulled leads and O2 off and when explained she was very apologetic and was directable. She is Med with tele and has a room at [place] [id number] and will be transferred and explained to as he will stay with her to keep her as calm as possible.
[2022-11-20 02:21] VITALS: BP 134/115
--- NOTE | 2022-11-20 05:57 | NUR ---
ALERT TO SELF AND PLACE. ANXIOUS AT TIMES; SPOUSE AT BEDSIDE OVERNIGHT. DENIES PAIN / DENIES FEELING NAUSEATED. TELE: ST 90s TO LOW 100s. LUNGS TIGHT WITH EXP WHEEZE THROUGHOUT. PRN TESSLON GIVEN FOR FREQUENT DRY COUGH. SOB WITH ACTIVITY. INC AT TIMES. 1X ASSIST TO BATHROOM. SLEEP PROMOTED. CALL LIGHT IN REACH; ENCOURAGED TO MAKE NEEDS KNOWN. BED ALARM SET.
[2022-11-20 07:18] VITALS: BP 150/101
[2022-11-20 07:40] LABS: BASOPHILS ABSOLUTE AUTO 0.02 K/mm3 (0.00-0.23); BASOPHILS PERCENT AUTO 0 % (0-2); EOSINOPHILS PERCENT AUTO 0 % (0-6); Hemoglobin 12.9 g/dL (11.5-16.0); IMMATURE GRAN ABSOLUTE AUTO 0.06 K/mm3 (0.00-0.10); IMMATURE GRAN PERCENT AUTO 1 % (0-1); LYMPHOCYTES ABSOLUTE AUTO 1.14 K/mm3 (0.84-5.20); LYMPHOCYTES PERCENT AUTO 10 % (21-46); MONOCYTES ABSOLUTE AUTO 0.18 K/mm3 (0.16-1.47); MONOCYTES PERCENT AUTO 2 % (4-13); Mean Corpuscular HGB 28.2 pg (26.0-34.0); Mean Corpuscular HGB Conc 33.9 g/dL (31.5-36.5); Mean Corpuscular Volume 83 fL (80-100); Mean Platelet Volume 9.4 fL (9.1-12.4); NEUTROPHILS ABSOLUTE AUTO 9.73 K/mm3 (1.96-9.15); NEUTROPHILS PERCENT AUTO 88 % (41-73); Platelet Count 225 K/mm3 (150-400); RDW Coefficient Variation 13.5 % (11.7-14.2); RDW Standard Deviation 40.5 fL (35.1-46.3); Red Blood Cell Count 4.58 M/mm3 (3.80-5.20); White Blood Cell Count 11.13 K/mm3 (4.00-11.30)
[2022-11-20 08:11] LABS: Bun/Creatinine Ratio 54.7 (12.0-20.0); Calcium, Blood 9.2 mg/dL (8.5-10.1); Creatinine, Blood 0.75 mg/dL (0.40-1.00)
[2022-11-20] MEDS ORDERED: DILT120ERA PO (15:03)
[2022-11-20] MEDS ORDERED: GUAI600T33 PO (15:03)
[2022-11-20] MEDS ORDERED: BENZ100A PO (15:03)
[2022-11-20] MEDS ORDERED: IPRAT-ALBUT 0.5-3 ML INH (15:04)
[2022-11-20] MEDS ORDERED: NITR.4SL SL (15:04)
[2022-11-20] MEDS ORDERED: PRED20 PO (15:04)
[2022-11-20 15:23] VITALS: BP 127/72
--- NOTE | 2022-11-20 19:49 | NUR ---
SHIFT SUMMARY: PT A/O X 3 FORGETFUL AT TIMES. STANDBY ASSIST, PLEASANT AND COOPERATIVE WITH CARE. PT WAS ADAMENT ABOUT GOING HOME THIS MORNING BUT AFTER HAVING THE HOME O2 EVAL COMPLETED, PT SPOUSE DECIDED HE LIKELY WOULD NOT BE ABLE TO CARE FOR HER APPROPRIATELY SHE WAS NOT ABLE TO TOLERATE AMBULATING LONG DISTANCES, BECAME EXTREMELY WHEEZY AND SOB AND NEEDED 4 LPM VIA NC WITH EXERTION. PT AND SPOUSE AGREEABLE TO STAYING ANOTHER NIGHT. PT HAD CPT AND TOLERATED WELL AND IS NOW COUGHING UP MUCOUS BUT SHE KEEPS FORGETTING TO SPIT IT OUT INTO A CUP AND SWALLOWS IT. PT NEEDS DIRECTION EACH TIME ON HOW TO USE FLUTTER THERAPY THROUGHOUT THE DAY. PT REPORTS SORE THROAT. TYLENOL AND CEPOCAL LOZENGES GIVEN. PT AFEBRILE, EATING AND DRINKING MOD WELL.
[2022-11-20 20:16] VITALS: BP 159/80
[2022-11-21 03:58] VITALS: BP 164/100
--- NOTE | 2022-11-21 04:25 | NUR ---
pATIENT IS ALERT AND ORIENTED X3, WITH SHORT TERM MEMORY LOSS. HAS REMAINED AT BEDSIDE AND HELPS WITH CARE. PATIENT IS A 1 PERSON ASSIST WITH CONTACT GUARD TO BATHROOM. PATIENT CONINUES TO PULL AT LINES, PULLED IV AND TELE OFF, BUT IS REDIRECTABLE. LUNGS ARE DIM, COARSE, INS/EXP WHEEZE, WIITH WET WEAK NON-PRODUCTIVE COUGH. PATIENT C/O SORE THROAT, COUGH DROPS ADMINISTERED. HTN, TREATED PER MAR. INCREASED BLOOD SUGAR AND HR, PROVIDER NOTIFIED AND NO NEW ORDERS. TELE ST. NO OTHER ISSUES TO REPORT.
[2022-11-21 07:43] VITALS: BP 128/102
--- NOTE | 2022-11-21 11:14 | NUR ---
DISCHARGE: PT DISCHARGED @ 1050 VIA OWN WHEELCHAIR WITH . PORTABLE OXYGEN DELIVERED YESTERDAY AND SENT WITH PT. JENNIFER TO DELIVER OXYEGN TO PT HOME. IV AND TELE DC'D BY JEANNE ALONSO. NO ISSUES WITH IV REMOVAL. PT UNHAPPY WITH WHEN LEAVING. DISCHARGE ORDERS FOR HOME HEALTH. MEDICATIONS SENT TO [facility]. DISCHARGE DONE BY HEATHER [place]INGTON DURING DAY SHIFT YESTERDAY. ALL BELONGINGS SENT WITH PT AND .
== END 2022-11-21 10:54 | disposition home health service (06) | DRG 202 ==
LOC: ER 14:02 → PCU 14:03 → MEDS 11-19 18:56 → ENPENDDIS 11-20 13:26 → MEDS 11-21 10:54
PROVIDERS: Family Medicine; Nurse Practitioner Acute Care; Physician Assistant; Student in an Organized Health Care Education/Training Program; ADMIT Internal Medicine
DX: J45.21 Mild intermittent asthma with (acute) exacerbation (principal); G93.41 Metabolic encephalopathy; I21.A1 Myocardial infarction type 2; J44.0 Chronic obstructive pulmonary disease with (acute) lower respiratory infection; N17.9 Acute kidney failure, unspecified; I69.354 Hemiplegia and hemiparesis following cerebral infarction affecting left non-dominant side; I24.9 Acute ischemic heart disease, unspecified; E87.1 Hypo-osmolality and hyponatremia; J20.9 Acute bronchitis, unspecified; R33.9 Retention of urine, unspecified; I10 Essential (primary) hypertension; E87.6 Hypokalemia; J98.8 Other specified respiratory disorders; G40.909 Epilepsy, unspecified, not intractable, without status epilepticus; B97.81 Human metapneumovirus as the cause of diseases classified elsewhere; E11.65 Type 2 diabetes mellitus with hyperglycemia; I25.10 Atherosclerotic heart disease of native coronary artery without angina pectoris; Z20.822 Contact with and (suspected) exposure to COVID-19; E86.1 Hypovolemia; I95.9 Hypotension, unspecified; Z98.890 Other specified postprocedural states; Z85.841 Personal history of malignant neoplasm of brain; Z79.4 Long term (current) use of insulin; Z88.5 Allergy status to narcotic agent; Z79.899 Other long term (current) drug therapy; Z79.02 Long term (current) use of antithrombotics/antiplatelets; Z79.82 Long term (current) use of aspirin; Z79.811 Long term (current) use of aromatase inhibitors; Z79.51 Long term (current) use of inhaled steroids; Z78.1 Physical restraint status
CPT/HCPCS: 0202U; 0241U; 36415; 71045; 80048; 80053; 82803; 82947; 83880; 84484; 85025; 85027; 85520; 85610; 85730; 92610; 93005; 93010; 93306; 94640; 94644; 94664; 94668; 94760; 94761; 94762; 96372; 96374; 96375; 96376; 97162; 97165; 97530; 97535; 99284-25; A9270; G0378; J0360; J1644; J1650; J1815; J1953; J2930; J3480; J7030

== ENCOUNTER → 2025-06-20 | Outpatient (CLI) | payer OTHER ==
[~2025-06-20] MED LIST changes: +ALBU90OI INH; +BENZ100A PO; +DILT120ERA PO; +GUAI600T33 PO; +INSULIN LI100 UNIT/5; +IPRAT-ALBUT 0.5-3 ML INH; +LEVE500 PO; +NITR.4SL SL; +PRED20 PO; +STEGLATRO5 MG PO
[2025-06-20 19:57] LABS: Alanine Aminotransfer (ALT/SGP 27.0 U/L (12-78); Albumin, Blood 4.0 g/dL (3.4-5.0); Albumin/Globulin Ratio 1.2 (0.8-1.8); Anion Gap 6.0 mmol/L (3-11); Aspartate Aminotrans (AST/SGOT 15.0 U/L (12-37); Bilirubin, Total 1.1 mg/dL (0.1-1.0); Blood Urea Nitrogen 11.0 mg/dL (8-24); CO2, Blood 31.0 mmol/L (21-32); Calcium, Blood 9.0 mg/dL (8.5-10.1); Chloride, Blood 102.0 mmol/L (98-108); Creatinine, Blood 0.53 mg/dL (0.40-1.00); Globulin, Blood 3.3 g/dL (2.2-4.0); Glucose, Blood 292.0 mg/dL (70-99); Magnesium, Blood 1.6 mg/dL (1.6-2.4); Potassium, Blood 3.7 mmol/L (3.5-5.5); Sodium, Blood 135.0 mmol/L (136-145); Total Protein, Blood 7.3 g/dL (6.4-8.2)
== END ==
LOC: LAB 11:15 → LAB SHORT 11:15
PROVIDERS: Student in an Organized Health Care Education/Training Program
DX: E87.6 Hypokalemia (principal)
CPT/HCPCS: 80053; 83735